=== PATIENT | male | born 1985 | race Caucasian/White ===

== ENCOUNTER 2016-05-30 17:54 | Emergency (ER) | payer MEDICARE, MEDICAID ==
[~2016-05-30] VITALS: Ht 177.8 cm; Wt 124.7 kg
[~2016-05-30 17:54] MED LIST: CEPH-38 PO; HYDR-757 PO; MELO15TA39; PRD20T PO; TRM50T PO
[2016-05-30] MEDS ORDERED: RT-ALBUINH (18:41)
[2016-05-30] MEDS ORDERED: MUPI22OI2 (18:41)
[2016-05-30] MEDS ORDERED: BUDE10.2 (18:41)
[2016-05-30] MEDS ORDERED: KETOROLAC 60 MG/2 ML VIAL IM STA (18:50)
[2016-05-30] MEDS ORDERED: HYDROcodone/APAP 10 MG/325 MG (LORTAB) TAB PO STA (18:50)
--- NOTE | 2016-05-30 19:20 | ED Back Pain ---
General Chief Complaint: Back Problems Stated Complaint: BACK PAIN Nursing Triage Note: AMBLATED TO ROOM 05 WITH COMPLAINTS OF BACK PAIN. PT HAS CHRONIC BACK PAIN BUT BECAME WORSE WHEN HE BENDED OVER TODAY. STATES HE DID NOT TAKE ANYTHING FOR PAIN BEFORE COMING TO THE ER. Nursing Sepsis Screen: No Definite Risk Source of Information: Patient Exam Limitations: No Limitations History of Present Illness Time Seen by Provider: 18:45 Initial Comments Here with report of low back pain that is radiating to the legs. Has history of back pain problems including degenerative disc disease. States he was bending over this morning and he felt it pole. He has had pain since. He has not taken anything for the pain. He does see Dr. Neri occasionally and will go back to him. Denies numbness or tingling between the legs. Denies bowel or bladder incontinence. Denies difficulty with walking or weakness. Timing/Duration: 12 Hours Severity: Moderate Pain/Injury Location: Back Radiation: Buttocks, Upper Legs Modifying Factors: Improves With Immobilization, Worse With Movement Associated Symptoms: muscle spasmsNo weakness, No numbness in legs/feet, tingling in legs/feetNo sensory/motor loss, lower back painNo loss of bladder control, No loss of bowel control Allergies and Home Medications Allergies Coded Allergies: No Known Drug Allergies (Unverified , 11/25/12) Home Medications Albuterol Sulfate 8.5 Gm Hfa.aer.ad #9 (Reported) Budesonide/Formoterol Fumarate 10.2 Gm Hfa.aer.ad #10 (Reported) Mupirocin 22 Gm Oint...g. #22 (Reported) Constitutional: see HPINo chills, No fever Respiratory: no symptoms reported Cardiovascular: no symptoms reported Musculoskeletal: see HPI back pain muscle stiffness Psychiatric/Neurological: No Symptoms Reported Past Pysfftk-Xjoyeb-Xwjimh Hx Patient Social History Alcohol Use: Denies Use Recreational Drug Use: No Smoking Status: Current Everyday Smoker Recent Foreign Travel: No Contact w/Someone Who Travel: No Recent Infectious Disease Expo: No Recent Hopitalizations: No Physical Abuse Screen: No Sexual Abuse: No Immunizations Up To Date Tetanus Booster (TDap): Less than 5yrs Surgeries HX Surgeries: No Respiratory Hx Respiratory Disorders: No Cardiovascular Hx Cardiac Disorders: Yes Cardiac Disorders: Hypertension Neurological Hx Neurological Disorders: No Reproductive System Hx Reproductive Disorders: No Genitourinary Hx Genitourinary Disorders: No Gastrointestinal Hx Gastrointestinal Disorders: No Musculoskeletal Hx Musculoskeletal Disorders: Yes Musculoskeletal Disorders: Degenerate Disk Disease, Chronic Back Pain Endocrine Hx Endocrine Disorders: No HEENT HX ENT Disorders: No Cancer Hx Cancer: No Psychosocial Hx Psychiatric Problems: No Reviewed Nursing Assessment Reviewed/Agree w Nursing PMH: Yes Family Medical History Significant Family History: No Pertinent Family Hx Physical Exam Vital Signs Vital Sign - Last 12Hours 05/30/16 18:36 Temp 98.1 Pulse 106 Resp 18 B/P 147/125 Pulse Ox 97 Capillary Refill : Less Than 3 Seconds General Appearance: No Apparent Distress WD/WN Cardiovascular: Regular Rate, Rhythm No Murmur Respiratory: Lungs Clear Normal Breath Sounds Back: No CVA Tenderness No Vertebral Tenderness Muscle Spasm Other (tender bilateral low back area with left greater than right and muscle spasms noted.) Extremity: Normal Inspection Normal Range of Motion Non Tender Neurologic/Psychiatric: Alert Oriented x3 No Motor/Sensory Deficits Skin: Normal Color Warm/Dry Progress/Results/Core Measures Results/Orders My Orders Orders-KAMILLE GAMBOA MD Hydrocodone/Apap 10/325 Tablet (Lortab 1 (05/30/16 18:50) Ketorolac Injection (Toradol Injection) (05/30/16 18:50) Vital Signs/I&O Vital Sign - Last 12Hours 05/30/16 18:36 Temp 98.1 Pulse 106 Resp 18 B/P 147/125 Pulse Ox 97 Blood Pressure Mean: 132 Progress Note : Progress Note Seen and evaluated. Hydrocodone 10/325 one tab by mouth given. Toradol 60 mg IM. Discharged home with return precautions. Patient verbalize understanding instructions and agreement with plan. Departure Impression Impression: Primary Impression: Back pain Qualified Code: M54.42 - Lumbago with sciatica, left side Disposition: 01 HOME, SELF-CARE Condition: Improved Departure-Patient Inst. Decision time for Depature: 19:23 Referrals: NO,LOCAL PHYSICIAN (PCP/Family) Primary Care Physician Patient Instructions: Low Back Pain (DC), Radiculopathy (DC) Add. Discharge Instructions: All discharge instructions reviewed with patient and/or family. Voiced understanding. Take medications as directed. You may take ibuprofen 800 mg every 8 hours as needed for pain. Follow-up with your doctor and one to 2 days for recheck and further evaluation. Return for worse pain, weakness, numbness between your legs , difficulty with walking or going to the bathroom or other concerns as needed. Scripts Prednisone 20 Mg Tab40 Mg PO DAILY #14 TAB Prov:KAMILLE GAMBOA MD 05/30/16 Hydrocodone/Acetaminophen (Hydrocodon-Acetaminoph 7.5-325)1 Each Tablet1 Each PO Q6H #14 TAB Prov:KAMILLE GAMBOA MD 05/30/16 KAMILLE GAMBOA MD May 30, 2016 19:20
[2016-05-30] MEDS ORDERED: HYDR-3816 PO (19:24)
[2016-05-30] MEDS ORDERED: PRD20T PO (19:24)
[2016-05-30 19:30] VITALS: BP 147/125
== END 2016-05-30 19:30 | disposition home or self-care (01) ==
LOC: EDUNIT# 17:54 → ER 17:56
DX: M54.41 Lumbago with sciatica, right side (principal); M54.42 Lumbago with sciatica, left side; I10 Essential (primary) hypertension; F17.210 Nicotine dependence, cigarettes, uncomplicated
CPT/HCPCS: 96372; 99283

== ENCOUNTER 2016-07-24 10:10 | Inpatient (IN) | payer MEDICAID, MEDICARE ==
[~2016-07-24] VITALS: Ht 182.9 cm; Wt 131.5 kg
[~2016-07-24 10:10] MED LIST changes: +BUDE10.2; +HYDR-3816 PO; +MUPI22OI2; +RT-ALBUINH
[2016-07-24 10:47] LABS: BASOPHILS % (AUTO) 0 % (0-10); EOSINOPHILS # (AUTO) 0.1 10^3/uL (0.0-0.3); EOSINOPHILS % (AUTO) 0 % (0-10); LYMPHOCYTES # (AUTO) 2.1 X 10^3 (1.0-4.0); LYMPHOCYTES % (AUTO) 13 % (12-44); MEAN CORPUSCULAR HEMOGLOBIN 30 PG (25-34); MEAN CORPUSCULAR HGB CONC 33 G/DL (32-36); MEAN CORPUSCULAR VOLUME 91 FL (80-99); MEAN PLATELET VOLUME 11.8 FL (7.4-10.4); MONOCYTES # (AUTO) 1.4 X 10^3 (0.0-1.0); MONOCYTES % (AUTO) 9 % (0-12); NEUTROPHILS # (AUTO) 12.2 X 10^3 (1.8-7.8); NEUTROPHILS % (AUTO) 78 % (42-75); PLATELET COUNT 206 10^3/uL (130-400); RED BLOOD COUNT 4.99 10^6/uL (4.35-5.85); RED CELL DISTRIBUTION WIDTH 14.4 % (10.0-14.5); WHITE BLOOD COUNT 15.7 10^3/uL (4.3-11.0)
[2016-07-24] MEDS ORDERED: NS IV 1000 ML 1,000 ML IV ONE (10:50)
[2016-07-24 10:53] LABS: BILIRUBIN,URINE NEGATIVE (NEGATIVE); KETONES,URINE NEGATIVE (NEGATIVE); LEUKOCYTE ESTERASE ,URINE 1+ (NEGATIVE); NITRITE,URINE POSITIVE (NEGATIVE); PH,URINE 6 (5-9); PROTEIN,URINE 2+ (NEGATIVE); UROBILINOGEN,URINE 4 MG/DL (NORMAL)
--- NOTE | 2016-07-24 11:02 | ED GI ---
General Chief Complaint: Abdominal/GI Problems Stated Complaint: ABD PAIN/FEVER WEAK DIZZY Nursing Triage Note: PT CO OF ABD PAIN AND FEVER STARTED SATURDAY NITE. FEVER UP TO 103, HAS SOME NVD Sepsis Screen: Possible Severe Sepsis Risk Source of Information: Patient Exam Limitations: No Limitations (KAMILLE GAMBOA MD) History of Present Illness Time Seen By Provider: 10:40 Initial Comments Here with complaint of 2 days of left lower quadrant abdominal pain and fever. Reports the fever was up to 103. Has had minor cough and upper respiratory symptoms. Reports that he's had watery diarrhea and multiple episodes of that. Has had some nausea but no vomiting. Denies blood in his stool. Never had anything like this before specifically. Timing/Duration: 2-3 Days Severity/Quality: Moderate, Cramping Location: Generalized Abdomen Radiation: LLQ Activities at Onset: None Modifying Factors: Improves With Defecating, Worsens With Eating, Worsens With Movement Associated Symptoms: No Back Pain, No Chest Pain, Fever/Chills Nausea/Vomiting (KAMILLE GAMBOA MD) Allergies and Home Medications Allergies Coded Allergies: No Known Drug Allergies (Unverified , 11/25/12) Home Medications Albuterol Sulfate 8.5 Gm Hfa.aer.ad #9 (Reported) Budesonide/Formoterol Fumarate 10.2 Gm Hfa.aer.ad #10 (Reported) Review of Systems Constitutional: see HPI chills fever EENTM: Nose CongestionNo Throat Pain Respiratory: CoughDenies Shortness of Air Cardiovascular: Denies Chest Pain, Denies Edema Gastrointestinal: Abdominal Pain Diarrhea NauseaDenies Rectal Bleeding, Denies Vomiting Genitourinary: No Symptoms Reported Musculoskeletal: no symptoms reported Skin: no symptoms reported (KAMILLE GAMBOA MD) All Other Systems Reviewed Negative Unless Noted: Yes (KAMILLE GAMBOA MD) Past Awhrnut-Ieymeu-Fxwvzm Hx Patient Social History Alcohol Use: Denies Use Recreational Drug Use: No Smoking Status: Current Everyday Smoker Type Used: Cigarettes Recent Foreign Travel: No Contact w/Someone Who Travel: No Recent Infectious Disease Expo: No Recent Hopitalizations: No (KAMILLE GAMBOA MD) Immunizations Up To Date Tetanus Booster (TDap): Less than 5yrs (KAMILLE GAMBOA MD) Surgeries HX Surgeries: No (KAMILLE GAMBOA MD) Respiratory Hx Respiratory Disorders: No (KAMILLE GAMBOA MD) Cardiovascular Hx Cardiac Disorders: Yes Cardiac Disorders: Hypertension (KAMILLE GAMBOA MD) Neurological Hx Neurological Disorders: No (KAMILLE GAMBOA MD) Reproductive System Hx Reproductive Disorders: No (KAMILLE GAMBOA MD) Genitourinary Hx Genitourinary Disorders: No (KAMILLE GAMBOA MD) Gastrointestinal Hx Gastrointestinal Disorders: No (KAMILLE GAMBOA MD) Musculoskeletal Hx Musculoskeletal Disorders: Yes Musculoskeletal Disorders: Degenerate Disk Disease, Chronic Back Pain (KAMILLE GAMBOA MD) Endocrine Hx Endocrine Disorders: No (KAMILLE GAMBOA MD) HEENT HX ENT Disorders: No (KAMILLE GAMBOA MD) Cancer Hx Cancer: No (KAMILLE GAMBOA MD) Psychosocial Hx Psychiatric Problems: No (KAMILLE GAMBOA MD) Reviewed Nursing Assessment Reviewed/Agree w Nursing PMH: Yes (KAMILLE GAMBOA MD) Family Medical History Significant Family History: No Pertinent Family Hx (KAMILLE GAMBOA MD) Physical Exam Vital Signs VS - Last 72 Hours, by Label 07/24/16 10:15 Temp 98.0 Pulse 111 Resp 18 B/P 141/85 Pulse Ox 97 (BULMARO AGUILAR MD) Vital Signs Capillary Refill : Less Than 3 Seconds (KAMILLE GAMBOA MD) General Appearance: WD/WN no apparent distress HEENT: No pharynx normal, other (nasal congestion bilateral) Neck: full range of motion supple Respiratory: lungs clear normal breath sounds Cardiovascular: no murmur tachycardia Gastrointestinal: soft tenderness (left lower quadrant and suprapubic tenderness) Extremities: non-tender normal inspection Back: normal inspection no CVA tenderness no vertebral tenderness Neurologic/Psychiatric: alert oriented x 3 Skin: normal color warm/dry (KAMILLE GAMBOA MD) Progress/Results/Core Measures Results/Orders Lab Results Laboratory Tests Test 07/24/16 10:30 07/24/16 11:30 Range/Units Activated Partial Thromboplast Time 24 24-35 SEC Alanine Aminotransferase (ALT/SGPT) 46 0-55 U/L Albumin 3.9 3.2-4.5 G/DL Alkaline Phosphatase 51 40-136 U/L Anion Gap 12 5-14 MMOL/L Aspartate Amino Transf (AST/SGOT) 12 5-34 U/L BUN/Creatinine Ratio 9 Band Neutrophils 1 % Basophils # (Auto) 0.0 0.0-0.1 10^3/uL Basophils % (Manual) 0 % Basophils (%) (Auto) 0 0-10 % Blood Morphology Comment NORMAL Blood Urea Nitrogen 8 7-18 MG/DL Calcium Level 9.2 8.5-10.1 MG/DL Carbon Dioxide Level 20 L 21-32 MMOL/L Chloride Level 107 98-107 MMOL/L Creatinine 0.87 0.60-1.30 MG/DL Eosinophils # (Auto) 0.1 0.0-0.3 10^3/uL Eosinophils % (Manual) 1 % Eosinophils (%) (Auto) 0 0-10 % Estimat Glomerular Filtration Rate > 60 Glucose Level 105 70-105 MG/DL Hematocrit 45 40-54 % Hemoglobin 15.0 13.3-17.7 G/DL INR Comment 1.0 0.8-1.4 Lymphocytes # (Auto) 2.1 1.0-4.0 X 10^3 Lymphocytes % (Manual) 13 % Lymphocytes (%) (Auto) 13 12-44 % Mean Corpuscular Hemoglobin 30 25-34 PG Mean Corpuscular Hemoglobin Concent 33 32-36 G/DL Mean Corpuscular Volume 91 80-99 FL Mean Platelet Volume 11.8 H 7.4-10.4 FL Monocytes # (Auto) 1.4 H 0.0-1.0 X 10^3 Monocytes % (Manual) 6 % Monocytes (%) (Auto) 9 0-12 % Neutrophils # (Auto) 12.2 H 1.8-7.8 X 10^3 Neutrophils % (Manual) 69 % Neutrophils (%) (Auto) 78 H 42-75 % Platelet Count 206 130-400 10^3/uL Potassium Level 3.5 L 3.6-5.0 MMOL/L Prothrombin Time 13.0 12.2-14.7 SEC Reactive Lymphocytes 10 % Red Blood Count 4.99 4.35-5.85 10^6/uL Red Cell Distribution Width 14.4 10.0-14.5 % Sodium Level 139 135-145 MMOL/L Total Bilirubin 1.1 H 0.1-1.0 MG/DL Total Protein 7.2 6.4-8.2 G/DL Urine Bacteria NEGATIVE /HPF Urine Bilirubin NEGATIVE NEGATIVE Urine Casts NONE /LPF Urine Clarity CLEAR Urine Color YELLOW Urine Crystals NONE /LPF Urine Culture Indicated YES Urine Glucose (UA) NEGATIVE NEGATIVE Urine Ketones NEGATIVE NEGATIVE Urine Leukocyte Esterase 1+ H NEGATIVE Urine Mucus LARGE H /LPF Urine Nitrite POSITIVE H NEGATIVE Urine Protein 2+ H NEGATIVE Urine RBC 0-2 /HPF Urine RBC (Auto) 1+ H NEGATIVE Urine Specific [place] 1.015 L 1.016-1.022 Urine Squamous Epithelial Cells NONE /HPF Urine Urobilinogen 4 H NORMAL MG/DL Urine WBC 2-5 /HPF Urine pH 6 5-9 White Blood Count 15.7 H 4.3-11.0 10^3/uL Lactic Acid Level 0.70 0.50-2.00 MMOL/L (BULMARO AGUILAR MD) Micro Results Microbiology 07/24/16 Influenza Types A,B Antigen (SAADIA) - Final, Complete (BULMARO AGUILAR MD) Medications Given in ED Current Medications Medications Dose Ordered Sig/Feliciano Route Start Time Stop Time Status Last Admin Dose Admin Iohexol 150 ml ONCE ONCE IV 07/24/16 11:30 07/24/16 11:31 DC 07/24/16 12:07 125 ML Sodium Chloride 100 ml ONCE ONCE IV 07/24/16 11:30 07/24/16 11:31 DC 07/24/16 12:07 80 ML Sodium Chloride 1,000 ml @ 0 mls/hr Q0M ONCE IV 07/24/16 10:50 07/24/16 10:51 DC 07/24/16 11:01 1,000 MLS/HR (BULMARO AGUILAR MD) Vital Signs/I&O Vital Sign - Last 12Hours 07/24/16 10:15 Temp 98.0 Pulse 111 Resp 18 B/P 141/85 Pulse Ox 97 (BULMARO AGUILAR MD) Blood Pressure Mean: 103 Progress Note : Progress Note Seen and evaluated. IV, labs, chest x-ray, blood cultures and lactic acid, influenza screen and normal saline 1 L bolus ordered. Monitor patient. UTI noted. Patient does have significant pain in the left lower quadrant as well. CT abdomen and pelvis with contrast ordered. 1200: Care transferred to Dr. AGUILAR pending CT. (KAMILLE GAMBOA MD) Diagnostic Imaging Diagonstic Imaging: Xray Plain Films/CT/US/NM/MRI: chest Comments [facility]IA [facility], [facility]. [place], [place] NAME: ANDRES AYALA [facility] REC#: [id number] PT STATUS: REG ER : 1985 PHYSICIAN: KAMILLE GAMBOA MD ADMIT DATE: 07/24/16/ER Draft Date of Exam:07/24/16 CHEST 1 VIEW, AP/PA ONLY INDICATION: Shortness of breath, nausea, vomiting, and diarrhea since last night. COMPARISON STUDY: Chest from 09-14-09. FINDINGS: Frontal view of the chest demonstrates the lungs to be clear. The heart, mediastinum, pulmonary vascularity and visualized bony thorax are normal. IMPRESSION: Negative chest. Dictated on workstation # [id number] Dict: 07/24/16 1113 Trans: 07/24/16 1120 JEROME [id number] Interpreted by: JOSE ARRINGTON MD Electronically signed by: Reviewed: Reviewed by Me (KAMILLE GAMBOA MD) Departure Communication Progress Notes I took over the patient from Dr. Gamboa at 12 noon. At 1215. The radiologist called and reported that the patient had 2 diverticuli both in the left lower quadrant and one of them was perforated. He will be admitted for definitive treatment. (BULMARO AGUILAR MD) Impression Impression: Primary Impression: Perforation of sigmoid colon due to diverticulitis Disposition: ADMITTED INPATIENT Condition: Stable/Unchanged Decision to Admit Reason: Admit from ER (General) Decision to Admit/Date: Jul 24, 2016 Time/Decision to Admit Time: 12:57 (BULMARO AGUILAR MD) Departure-Patient Inst. Referrals: [facility] (PCP/Family) Primary Care Physician KAMILLE GAMBOA MD Jul 24, 2016 11:02 BULMARO AGUILAR MD Jul 24, 2016 12:58
[2016-07-24 11:04] LABS: ALANINE AMINOTRANSFERASE 46 U/L (0-55); ALBUMIN 3.9 G/DL (3.2-4.5); ANION GAP 12 MMOL/L (5-14); ASPARTATE AMINO TRANSFERASE 12 U/L (5-34); BILIRUBIN,TOTAL 1.1 MG/DL (0.1-1.0); BLOOD UREA NITROGEN 8 MG/DL (7-18); BUN/CREATININE RATIO 9; CALCIUM 9.2 MG/DL (8.5-10.1); CARBON DIOXIDE 20 MMOL/L (21-32); CHLORIDE 107 MMOL/L (98-107); CREATININE SERUM 0.87 MG/DL (0.60-1.30); GFR ESTIMATED > 60; GLUCOSE 105 MG/DL (70-105); POTASSIUM 3.5 MMOL/L (3.6-5.0); SODIUM 139 MMOL/L (135-145); TOTAL PROTEIN 7.2 G/DL (6.4-8.2)
[2016-07-24 11:11] LABS: BAND NEUTROPHILS 1 %; BASOPHILS % (MANUAL) 0 %; EOSINOPHILS % (MANUAL) 1 %; LYMPHOCYTES % (MANUAL) 13 %; NEUTROPHILS % (MANUAL) 69 %; REACTIVE LYMPHOCYTES 10 %
--- NOTE | 2016-07-24 11:20 | Diagnostic Imaging Report ---
INDICATION: Shortness of breath, nausea, vomiting, and diarrhea since last night. COMPARISON STUDY: Chest from 09-14-09. FINDINGS: Frontal view of the chest demonstrates the lungs to be clear. The heart, mediastinum, pulmonary vascularity and visualized bony thorax are normal. IMPRESSION: Negative chest. Dictated by: Dictated on workstation # [id number]
[2016-07-24] MEDS ORDERED: NS 100 ML (IVPB) BAG IV ONE (11:30)
[2016-07-24] MEDS ORDERED: IOHEXOL 350 MG/ML 150 ML (OMNIPAQUE 350) VIAL IV ONE (11:30)
--- NOTE | 2016-07-24 12:55 | Diagnostic Imaging Report ---
PROCEDURE: CT abdomen and pelvis with contrast. TECHNIQUE: Multiple contiguous axial images were obtained through the abdomen and pelvis after administration of intravenous contrast. INDICATION: Fever, diarrhea, left lower quadrant pain. FINDINGS: There is acute diverticulitis in the left lower quadrant of the proximal sigmoid colon with multiple adjacent bubbles of extraluminal mesenteric gas, consistent with perforation. The extraluminal air confined of the adjacent mesentery with no free anti-dependent air deep to the abdominal wall. There is no abscess or drainable fluid collection. There is no evidence for resultant bowel obstruction. Only a few regional diverticula at the level of acute inflammation found. The remaining large bowel is unremarkable, nonacute, and nonfocal. The appendix is normal. Prostate, seminal vesicles, and urinary bladder appeared normal. The kidneys are unobstructed and normal. The liver, gallbladder, bile ducts, pancreas, lung bases, and osseous structures are normal. There is a circumscribed well-defined left adrenal mass measuring 3.6 x 3.2 cm at the dynamic and delayed images. It is relatively low in density with Hounsfield units averaging about 8 to 15. Pre injection imaging is not performed. Assuming the absence of known malignancy, the lesion's density and morphology most strongly favors a benign adenoma. Followup study in six months' time to include pre contrast dynamic and delayed acquisitions recommended to confirm the suspicion for benignity. As an alternative, MRI may be of use on nonemergent outpatient basis. IMPRESSION: 1. Findings of acute sigmoid diverticulitis with multiple bubbles of adjacent extraluminal mesenteric air, compatible with likely microperforation. No abscess or drainable fluid collection and no resultant bowel obstruction. No other acute findings. 2. 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 Adenoma is favored, however, followup in six months' time to include pre injection series versus nonemergent outpatient adrenal protocol MRI is suggested. Results have been discussed with the emergency room physician. Dictated by: Dictated on workstation # [id number]
[2016-07-24] MEDS ORDERED: fentaNYL INJECTION 100 MCG/2 ML AMP ONE (14:05)
[2016-07-24] MEDS ORDERED: fentaNYL INJECTION 100 MCG/2 ML AMP IVP ONE (14:15)
[2016-07-24] MEDS ORDERED: BUDE10.22 IH (15:34)
[2016-07-24] MEDS ORDERED: RT-ALBUINH IH (15:34)
[2016-07-24] MEDS ORDERED: ACET-93 PO (15:38)
[2016-07-24] MEDS ORDERED: IBUP-1780 PO (15:38)
[2016-07-24] MEDS ORDERED: fentaNYL INJECTION 100 MCG/2 ML AMP IV PRN (15:45)
[2016-07-24] MEDS ORDERED: CATHETER FLUSH 10 ML SYR IV PRN (15:45)
[2016-07-24] MEDS ORDERED: FLU TRIvalent (5 YOA+) 2016-17 (AFLURIA) 0.5 ML IM ONE (15:45)
[2016-07-24] MEDS: metroNIDAZOLE 500MG/100ML IVPB 100 ML IV SCH ×2 (15:56→21:00)
[2016-07-24] MEDS: NS IV 1000 ML 1,000 ML IV SCH ×2 (15:56→23:45)
[2016-07-24 16:00] VITALS: BP 148/85
[2016-07-24] MEDS: CIPROFLOXACIN IV 400MG/200ML 200 ML IV SCH (18:26)
--- NOTE | 2016-07-24 19:39 | Consultation ---
History of Present Illness History of Present Illness Patient Consulted On(rivka/time) 07/24/16 19:33 Date of Admission 07/24/16 History of Present Illness Surgery asked to consult regarding Perforated Diverticulitis. HPI: Pt with complaint of 2 days of left lower quadrant abdominal pain and fever. Reports the fever was up to 103. Has had minor cough and upper respiratory symptoms. Reports that he's had watery diarrhea and multiple episodes of that. Has had some nausea but no vomiting. Denies blood in his stool. Never had anything like this before specifically. Pain is worse with initiating a BM or urination, worse when he sits up. He states actually gets better when he walks. Pain meds are also helping. He states his pain when its at its worst is 10 out of 10. Allergies and Home Medications Allergies Coded Allergies: No Known Drug Allergies (Unverified , 11/25/12) Home Medications Acetaminophen 500 Mg Tablet 1,000 MG PO Q8H PRN PRN FEVER (Reported) TAKES 2 (500 MG) TABLETS Albuterol Sulfate 1 Puff Puff 2 PUFF IH Q4H PRN PRN SHORTNESS OF BREATH ( Reported) Budesonide/Formoterol Fumarate 10.2 Gm Hfa.aer.ad 2 PUFF IH BID (Reported) Ibuprofen 800 Mg Tablet 800 MG PO TID PRN PRN HEADACHE (Reported) Past Giotjtx-Hkldde-Rkyiom Hx Patient Social History Alcohol Use: Occasionally Uses (1-2 times a month, socially) Recreational Drug Use: No Smoking Status: Current Everyday Smoker Type Used: Cigarettes Recent Foreign Travel: No Contact w/Someone Who Travel: No Recent Infectious Disease Expo: No Recent Hopitalizations: No Physical Abuse Screen: No Sexual Abuse: No Immunizations Up To Date Tetanus Booster (TDap): Less than 5yrs Seasonal Allergies Seasonal Allergies: No Surgeries HX Surgeries: No Respiratory Hx Respiratory Disorders: No Cardiovascular Hx Cardiac Disorders: Yes Cardiac Disorders: Hypertension Neurological Hx Neurological Disorders: No Reproductive System Hx Reproductive Disorders: No Genitourinary Hx Genitourinary Disorders: No Gastrointestinal Hx Gastrointestinal Disorders: No Musculoskeletal Hx Musculoskeletal Disorders: Yes Musculoskeletal Disorders: Degenerate Disk Disease, Chronic Back Pain Endocrine Hx Endocrine Disorders: No HEENT HX ENT Disorders: No Cancer Hx Cancer: No Psychosocial Hx Psychiatric Problems: No Integumentary HX Skin/Integumentary Disorder: No Reviewed Nursing Assessment Reviewed/Agree w Nursing PMH: Yes Family Medical History Significant Family History: No Pertinent Family Hx, CAD Under 55 Years Old ( father), Diabetes (father) Review of Systems-General Constitutional: chills diaphoresis fever malaise EENTM: No double vision, No ear pain, No epistaxis, No mouth swelling, No nose congestion, No throat swelling Respiratory: coughNo dyspnea on exertion, No hemoptysis, No phlegm Cardiovascular: No chest pain, No edema, No palpitations Gastrointestinal: LLQ diarrhea loss of appetiteNo melena Genitourinary: No decreased output, No discharge, No dysuria, No frequency, No hematuria Musculoskeletal: back pain joint pain joint swelling muscle stiffness Skin: No dryness, No lesions Psychiatric/Neurological: Denies Anxiety, Denies Depressed, HeadacheDenies Seizure, Denies Tingling, Denies Weakness Other pt denies any chronic illnesses, no swollen lymph nodes. No heat or cold intolerance, no polyuria, polydipsia Physical Exam-General Problems Physical Exam Vital Signs Vital Sign - Last 12Hours 07/24/16 07/24/16 10:15 16:00 Temp 98.0 Pulse 111 Resp 18 B/P 141/85 Pulse Ox 97 O2 Delivery Room Air Capillary Refill : Less Than 3 Seconds General Appearance: WD/WN moderate distress (secondary to pain) obese Eyes: Bilateral Eye EOMI, Bilateral Eye PERRL HEENT: pharynx normalNo scleral icterus (R), No scleral icterus (L), No pale conjunctivae (R), No pale conjunctivae (L) Neck: non-tender full range of motion supple normal inspection Respiratory: lungs clear normal breath sounds no respiratory distress no accessory muscle use Cardiovascular: regular rate, rhythm no edema no murmur Gastrointestinal: normal bowel sounds soft no organomegalyNo distended, guarding (voluntary LLQ) tenderness (LLQ - localized pain) Rectal: deferred Back: no CVA tenderness no vertebral tenderness Extremities: no pedal edema no calf tenderness normal capillary refill 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2, Carbon Dioxide Level 20L, Chloride Level 107, Creatinine 0.87, Eosinophils # (Auto) 0.1, Eosinophils % (Manual) 1, Eosinophils (%) (Auto) 0, Estimat Glomerular Filtration Rate > 60, Glucose Level 105, Hematocrit 45, Hemoglobin 15.0, INR Comment 1.0, Lymphocytes # (Auto ) 2.1, Lymphocytes % (Manual) 13, Lymphocytes (%) (Auto) 13, Mean Corpuscular Hemoglobin 30, Mean Corpuscular Hemoglobin Concent 33, Mean Corpuscular Volume 91, Mean Platelet Volume 11.8H, Monocytes # (Auto) 1.4H, Monocytes % (Manual) 6 , Monocytes (%) (Auto) 9, Neutrophils # (Auto) 12.2H, Neutrophils % (Manual) 69 , Neutrophils (%) (Auto) 78H, Platelet Count 206, Potassium Level 3.5L, Prothrombin Time 13.0, Reactive Lymphocytes 10, Red Blood Count 4.99, Red Cell Distribution Width 14.4, Sodium Level 139, Total Bilirubin 1.1H, Total Protein 7.2, Urine Bacteria NEGATIVE, Urine Bilirubin NEGATIVE, Urine Casts NONE, Urine Clarity CLEAR, Urine Color YELLOW, Urine Crystals NONE, Urine Culture Indicated YES, Urine Glucose (UA) NEGATIVE, Urine Ketones NEGATIVE, Urine Leukocyte Esterase 1+H, Urine Mucus LARGEH, Urine Nitrite POSITIVEH, Urine Protein 2+H, Urine RBC 0-2, Urine RBC (Auto) 1+H, Urine Specific Holden 1.015L, Urine Squamous Epithelial Cells NONE, Urine Urobilinogen 4H, Urine WBC 2-5, Urine pH 6 , White Blood Count 15.7H 07/24/16 11:30: Lactic Acid Level 0.70 Microbiology 07/24/16 Influenza Types A,B Antigen (SAADIA) - Final, Complete Assessment/Plan Assessment/Plan Assessment/Plan Perforated Diverticulitis NPO, IV fluids, IV ABX, lefty labs. Had long discussion with pt and his ; over 45 minutes. We discussed course of the disease, most likely hospital course. We also talked about timing of surgical intervention; none needed at this time and may not need in the future, unless it starts affecting his daily life. We talked about diet (low residual and increased fiber), anatomy and what the CT reading was. Discussed surgery in detail; 2-stage vs. 1-stage procedure. All questions answered to their satisfaction. 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 Clinical Quality Measures DVT/VTE Risk/Contraindication: Risk Factor Score Per Nursin RFS Level Per Nursing on Admit: 3=High CARMINE ACUÑA DO Jul 24, 2016 19:39
[2016-07-24 20:00] VITALS: BP 145/83
[2016-07-24] MEDS: HYDROmorphone (DILAUDID) 2 MG/ML VIAL IVP PRN (22:40)
[2016-07-25 00:01] VITALS: BP 117/65
[2016-07-25] MEDS: NS IV 1000 ML 1,000 ML IV SCH ×2 (03:19→13:13)
[2016-07-25] MEDS: HYDROmorphone (DILAUDID) 2 MG/ML VIAL IVP PRN ×4 (04:03→22:44)
[2016-07-25 04:06] VITALS: BP 142/82
[2016-07-25] MEDS: metroNIDAZOLE 500MG/100ML IVPB 100 ML IV SCH ×3 (05:09→22:09)
[2016-07-25 05:16] LABS: BASOPHILS % (AUTO) 0 % (0-10); EOSINOPHILS # (AUTO) 0.1 10^3/uL (0.0-0.3); EOSINOPHILS % (AUTO) 1 % (0-10); LYMPHOCYTES # (AUTO) 1.9 X 10^3 (1.0-4.0); LYMPHOCYTES % (AUTO) 18 % (12-44); MEAN CORPUSCULAR HEMOGLOBIN 30 PG (25-34); MEAN CORPUSCULAR HGB CONC 33 G/DL (32-36); MEAN CORPUSCULAR VOLUME 92 FL (80-99); MEAN PLATELET VOLUME 11.4 FL (7.4-10.4); MONOCYTES # (AUTO) 0.9 X 10^3 (0.0-1.0); MONOCYTES % (AUTO) 9 % (0-12); NEUTROPHILS # (AUTO) 7.8 X 10^3 (1.8-7.8); NEUTROPHILS % (AUTO) 73 % (42-75); PLATELET COUNT 179 10^3/uL (130-400); RED CELL DISTRIBUTION WIDTH 14.4 % (10.0-14.5); WHITE BLOOD COUNT 10.8 10^3/uL (4.3-11.0)
[2016-07-25] MEDS: CIPROFLOXACIN IV 400MG/200ML 200 ML IV SCH ×2 (06:15→17:57)
[2016-07-25 08:08] VITALS: BP 120/73
--- NOTE | 2016-07-25 10:46 | Progress Note ---
Subjective Subjective/Events-last exam Pt seen and examined; states his pain is about a 7. He feels better than yesterday and nurse said he walked downstairs and was there for an hour or so. He is passing gas and still has watery, brownish bowel movements. Review of Systems General: No Chills, No Night Sweats, Fatigue Appetite (pt states he is not that hungry, but very thirsty) HEENT: Head Aches (pt thinks it is from not eating)No Sore Throat Pulmonary: No Dyspnea, No Cough Cardiovascular: No: Chest Pain Gastrointestinal: No: Nausea, Vomiting Neurological: No: Numbness, Weakness Objective Exam Vital Signs Date Time Temp Pulse Resp B/P Pulse Ox O2 Delivery O2 Flow Rate FiO2 07/25/16 08:08 97.1 101 16 120/73 95 Room Air 07/25/16 04:06 98.3 85 22 142/82 95 Room Air 07/25/16 00:01 99.3 95 20 117/65 93 Room Air 07/24/16 20:55 Room Air 07/24/16 20:00 99.8 102 20 145/83 93 Room Air 07/24/16 16:00 99.7 93 20 148/85 96 Room Air 07/24/16 14:42 98.0 88 18 97 I & O 07/25/16 07:00 Intake Total 2700 ml Balance 2700 ml Capillary Refill : Less Than 3 Seconds General Appearance: No Apparent Distress WD/WN Obese HEENT: PERRL/EOMI Pharynx NormalNo Scleral Icterus (L), No Scleral Icterus (R) Neck: Full Range of Motion Non Tender SuppleNo Thyromegaly Respiratory: Lungs Clear Normal Breath Sounds No Accessory Muscle Use No Respiratory Distress Cardiovascular: Regular Rate, Rhythm No Murmur Normal Peripheral Pulses Gastrointestinal: normal bowel sounds soft no organomegalyNo distended, guarding (voluntary LLQ) tenderness (LLQ - localized pain) Extremity: Normal Capillary Refill No Calf Tenderness No Pedal Edema Neurologic/Psychiatric: Alert 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 Norm as Tested Skin: Normal Color Warm/Dry Lymphatic: No Adenopathy (neck, axilla or groin) Results Lab Laboratory Tests 07/24/16 11:30: Lactic Acid Level 0.70 07/25/16 04:57: Basophils # (Auto) 0.0, Basophils (%) (Auto) 0, Eosinophils # (Auto) 0.1, Eosinophils (%) (Auto) 1, Hematocrit 42, Hemoglobin 13.5, Lymphocytes # (Auto) 1.9, Lymphocytes (%) (Auto) 18, Mean Corpuscular Hemoglobin 30, Mean Corpuscular Hemoglobin Concent 33, Mean Corpuscular Volume 92, Mean Platelet Volume 11.4H, Monocytes # (Auto) 0.9, Monocytes (%) (Auto) 9, Neutrophils # ( Auto) 7.8, Neutrophils (%) (Auto) 73, Platelet Count 179, Red Blood Count 4.50, Red Cell Distribution Width 14.4, White Blood Count 10.8 Microbiology 07/24/16 Influenza Types A,B Antigen (SAADIA) - Final, Complete 07/24/16 Urine Culture - Preliminary, Resulted Assessment/Plan Assessment/Plan Assessment/Plan Perforated Diverticulitis Will start ice chips now, Clear liquids for dinner and increase slowly. Will decrease IV fluids. IV ABX will switch to oral after 3/9 am dose, lefty labs. Will go home on oral ABX for a total of 7 days of treatment Plan to send home Saturday afternoon or Saturday morning, pt must be tolerating diet with pain controlled. His pain is not yet under good enough control. 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 Clinical Quality Measures DVT/VTE Risk/Contraindication: Risk Factor Score Per Nursin RFS Level Per Nursing on Admit: 3=High CARMINE ACUÑA DO Jul 25, 2016 10:46
--- NOTE | 2016-07-25 11:39 | History & Physical-Hospitalist ---
HPI History of Present Illness: HPI/Chief Complaint CC: Abdominal pain HPI: This is a pt of [facility] that presents with abdominal pain and fever of 103 found to have acute diverticulitis with micro-perforation. Pt placed on Cipro and Flagyl, pain medication, IV fluids, and surgical consultation. Chart Review: WBC down from 15 to 10.8 Pt on Cipro and Flagyl Dr. Guerrero Review: Pt will likely not need surgery, and may DC Saturday or Saturday. Pt can switch to clear liquid diet. Dr. Guerrero suggests total 7 days of antibiotic. digital measurement advisor: RN states that Dilaudid was effective. RN has no concerns at this time. Patient Interview: Pt denies having previous symptoms. Pt is disabled due to back, and does not work. Pt states that his pain is manageable, but states that it is at an 8. Pt denies vomiting at [facility]. Pt able to ambulate by himself. Physical exam stable. Pt smokes but denies drinking excessive ETOH. Pt lives with . Scribed by Brandin Gutierrez under the direct supervision of Dr. Jack. Source: patient Exam Limitations: no limitations Date Seen 07/25/16 Attending Physician Molly Jack DO [place] [facility] [place] Referring Physician Date of Admission Jul 24, 2016 at 13:54 Home Medications & Allergies Home Medications Reviewed patient Home Medication Reconciliation Form Allergies Coded Allergies: No Known Drug Allergies (Unverified , 11/25/12) Past Gikbmyc-Xyqzzp-Ggzcce Hx Patient Social History Marrital Status: Employed/Student: unemployed Alcohol Use: Occasionally Uses (1-2 times a month, socially) Recreational Drug Use: No Smoking Status: Current Everyday Smoker Type Used: Cigarettes Physical Abuse Screen: No Sexual Abuse: No Recent Foreign Travel: No Contact w/other who traveled: No Recent Hopitalizations: No Recent Infectious Disease Expo: No Immunizations Up To Date Tetanus Booster (TDap): Less than 5yrs Seasonal Allergies Seasonal Allergies: No Surgeries HX Surgeries: No Respiratory Hx Respiratory Disorders: Yes Respiratory Disorders: Asthma Cardiovascular Hx Cardiovascular Disorders: Yes Cardiac Disorders: Hypertension Neurological Hx Neurological Disorders: No Reproductive System Hx Reproductive Disorders: No Genitourinary Hx Genitourinary Disorders: No Gastrointestinal Hx Gastrointestinal Disorders: No Musculoskeletal Hx Musculoskeletal Disorders: Yes Musculoskeletal Disorders: Degenerate Disk Disease, Chronic Back Pain Endocrine Hx Endocrine Disorders: No HEENT HX ENT Disorders: No Cancer Hx Cancer: No Psychosocial Hx Psychiatric Problems: No Integumentary HX Skin/Integumentary Disorder: No Reviewed Nursing Assessment Reviewed/Agree w Nursing PMH: Yes Family Medical History Significant Family History: No Pertinent Family Hx, CAD Under 55 Years Old ( father), Diabetes (father) Review of Systems Constitutional: see HPI dizziness fever malaise weakness EENTM: no symptoms reported Respiratory: no symptoms reported Cardiovascular: no symptoms reported Gastrointestinal: abdominal pain (LLQ) Genitourinary: no symptoms reported Musculoskeletal: back pain Skin: no symptoms reported Psychiatric/Neurological: No Symptoms Reported All Other Systems Reviewed Negative Unless Noted: Yes Physical Exam Physical Exam Vital Signs Vital Sign - Last 12Hours 07/24/16 07/24/16 10:15 16:00 Temp 98.0 Pulse 111 Resp 18 B/P 141/85 Pulse Ox 97 O2 Delivery Room Air Capillary Refill : Less Than 3 Seconds General Appearance: No Apparent Distress WD/WN Chronically ill Eyes: Bilateral Eye Normal Inspection, Bilateral Eye PERRL HEENT: PERRL/EOMI Normal ENT Inspection Pharynx Normal Neck: Full Range of Motion Normal Inspection Non Tender Supple Carotid Bruit Respiratory: Chest Non Tender Lungs Clear Normal Breath Sounds No Accessory Muscle Use No Respiratory Distress Cardiovascular: Regular Rate, Rhythm No Edema No Gallop No JVD No Murmur Normal Peripheral Pulses Gastrointestinal: Normal Bowel Sounds No Organomegaly No Pulsatile Mass Soft Tenderness (LLQ) Back: Normal Inspection No CVA Tenderness No Vertebral Tenderness Extremity: Normal Capillary Refill Normal Inspection Normal Range of Motion Non Tender No Calf Tenderness No Pedal Edema Neurologic/Psychiatric: Alert Oriented x3 No Motor/Sensory Deficits Normal Mood/Affect Skin: Normal Color Warm/Dry Lymphatic: No Adenopathy Results Results/Procedures Lab Laboratory Tests 07/24/16 10:30 07/25/16 04:57 Assessment/Plan Admission Diagnosis Assessment: Acute diverticulitis with perforation Asthma Smoker Disability from chronic back pain Assessment and Plan Plan: Cipro and Flagyl IV fluids Pain management Dietary transition to clear liquids. DVT prophylaxis Ambulate Clinical Quality Measures DVT/VTE Risk/Contraindication: Risk Factor Score Per Nursin RFS Level Per Nursing on Admit: 3=High MOLLY JACK DO Jul 25, 2016 11:39
[2016-07-25] MEDS ORDERED: RT-ALBUTEROL SULF 2.5 MG/3 ML PRE-MIX VIAL INH PRN (12:00)
[2016-07-25] MEDS ORDERED: RT-ALBUTEROL HFA (VENTOLIN) PER PUFF IH PRN (12:00)
[2016-07-25] MEDS ORDERED: ENOXAPARIN 40 MG/0.4 ML (LOVENOX) SYR SC SCH (12:00)
[2016-07-25] MEDS ORDERED: ACETAMINOPHEN 500 MG TAB (TYLENOL) PO PRN (12:00)
[2016-07-25] MEDS ORDERED: IBUPROFEN 800 MG (MOTRIN) TAB PO PRN (12:00)
[2016-07-25] MEDS: RT-ALBUTEROL SULF 2.5 MG/3 ML PRE-MIX VIAL INH SCH ×2 (12:17→19:37)
[2016-07-25 12:38] VITALS: BP 140/74
[2016-07-25 16:00] VITALS: BP 145/68
[2016-07-25] MEDS: RT-ADVAIR HFA 45/21 MCG PER PUFF IH SCH (19:37)
[2016-07-25 20:45] VITALS: BP 135/62
[2016-07-25] MEDS ORDERED: NON-FORMULARY MEDICATION 1 EA EA (Budesonide/Formoterol Fumarate (Symbicort 80-4.5 Mcg Inh IH SCH (21:00)
[2016-07-26] VITALS: BP 140/63
[2016-07-26] MEDS: NS IV 1000 ML 1,000 ML IV SCH ×2 (00:40→07:45)
[2016-07-26 04:00] VITALS: BP 140/73
[2016-07-26] MEDS: metroNIDAZOLE 500MG/100ML IVPB 100 ML IV SCH (05:53)
[2016-07-26] MEDS: RT-ALBUTEROL SULF 2.5 MG/3 ML PRE-MIX VIAL INH SCH (06:33)
[2016-07-26] MEDS: RT-ADVAIR HFA 45/21 MCG PER PUFF IH SCH (06:34)
[2016-07-26] MEDS: CIPROFLOXACIN IV 400MG/200ML 200 ML IV SCH (07:00)
[2016-07-26 07:05] LABS: BASOPHILS % (AUTO) 0 % (0-10); EOSINOPHILS # (AUTO) 0.1 10^3/uL (0.0-0.3); EOSINOPHILS % (AUTO) 1 % (0-10); LYMPHOCYTES # (AUTO) 1.6 X 10^3 (1.0-4.0); LYMPHOCYTES % (AUTO) 21 % (12-44); MEAN CORPUSCULAR HEMOGLOBIN 30 PG (25-34); MEAN CORPUSCULAR HGB CONC 32 G/DL (32-36); MEAN CORPUSCULAR VOLUME 93 FL (80-99); MONOCYTES # (AUTO) 0.5 X 10^3 (0.0-1.0); MONOCYTES % (AUTO) 6 % (0-12); NEUTROPHILS # (AUTO) 5.4 X 10^3 (1.8-7.8); NEUTROPHILS % (AUTO) 71 % (42-75); PLATELET COUNT 193 10^3/uL (130-400); RED BLOOD COUNT 4.39 10^6/uL (4.35-5.85); RED CELL DISTRIBUTION WIDTH 14.2 % (10.0-14.5); WHITE BLOOD COUNT 7.6 10^3/uL (4.3-11.0)
[2016-07-26 07:30] LABS: ALANINE AMINOTRANSFERASE 42 U/L (0-55); ALBUMIN 3.4 G/DL (3.2-4.5); ANION GAP 11 MMOL/L (5-14); ASPARTATE AMINO TRANSFERASE 26 U/L (5-34); BILIRUBIN,TOTAL 0.5 MG/DL (0.1-1.0); BLOOD UREA NITROGEN 6 MG/DL (7-18); BUN/CREATININE RATIO 7; CALCIUM 8.9 MG/DL (8.5-10.1); CARBON DIOXIDE 21 MMOL/L (21-32); CHLORIDE 110 MMOL/L (98-107); CREATININE SERUM 0.81 MG/DL (0.60-1.30); GFR ESTIMATED > 60; GLUCOSE 83 MG/DL (70-105); POTASSIUM 3.5 MMOL/L (3.6-5.0); SODIUM 142 MMOL/L (135-145); TOTAL PROTEIN 6.5 G/DL (6.4-8.2)
[2016-07-26 08:34] VITALS: BP 138/62
[2016-07-26] MEDS ORDERED: KCL 20 MEQ TAB (K-DUR) PO NR (09:00)
--- NOTE | 2016-07-26 10:52 | Discharge Summary-Hospitalist ---
Diagnosis/Chief Complaint Date of Admission Jul 24, 2016 at 13:54 Date of Discharge Discharge Date: Admission Diagnosis Assessment: Acute diverticulitis with perforation Asthma Smoker Disability from chronic back pain Discharge Diagnosis Assessment: Acute diverticulitis with perforation Asthma Smoker Disability from chronic back pain Plan: Cipro and Flagyl IV fluids Pain management Dietary transition to clear liquids. DVT prophylaxis Ambulate Reason Hospital Visit/Course CC: Abdominal pain HPI: This is a pt of [facility] that presents with abdominal pain and fever of 103 found to have acute diverticulitis with micro-perforation. Pt placed on Cipro and Flagyl, pain medication, IV fluids, and surgical consultation. Chart Review: WBC down from 15 to 10.8 Pt on Cipro and Flagyl Dr. Guerrero Review: Pt will likely not need surgery, and may DC Saturday or Saturday. Pt can switch to clear liquid diet. Dr. Guerrero suggests total 7 days of antibiotic. 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 RN has no concerns at this time. Patient Interview: Pt denies having previous symptoms. Pt is disabled due to back, and does not work. Pt states that his pain is manageable, but states that it is at an 8. Pt denies vomiting at [facility]. Pt able to ambulate by himself. Physical exam stable. Pt smokes but denies drinking excessive ETOH. Pt lives with . Scribed by Brandin Gutierrez under the direct supervision of Dr. Jack. Notes from 07/26/2016: Chart Review: Max fever 100.7 WBC normal at 7.6 K+ 3.5 Patient Interview: Pt states that he has been ambulating. Pt states that he is hungry, and wants food. Pt states that he has no pain. Pain resolved last night at 11pm. Pt had a normal BM last night. Dr. Jack discusses DC options with pt. Pt uses [facility] in [place]. Pt has no pain med supply at home. Physical exam stable. no fever, vital signs stable, pleasant, improved, partner at bedside Regular rate and rhythm, clear to auscultation bilaterally Nontender abdomen Plan: Replace K+ 20meq po Heplock IVF Advance diet DC with follow-up with [facility] and Dr. Guerrero Scribed by Brandin Gutierrez under the direct supervision of Dr. Jack. Hospital course: Patient had an uneventful hospital course he was admitted for acute diverticulitis with microperforation and Dr. Guerrero was consulted. Conservative treatment ensued and antibiotics were tolerated and maintain during hospital course along with bowel rest and IV fluids. Pain medication was required but overall he improved enough to be able to eat and drink on his own and will have close follow-up with [facility] in addition with Dr. Guerrero for colonoscopy. Discharge Summary Discharge Physical Examination Allergies: Coded Allergies: No Known Drug Allergies (Unverified , 11/25/12) Vitals & I&Os Vital Signs Date Time Temp Pulse Resp B/P Pulse Ox O2 Delivery O2 Flow Rate FiO2 07/26/16 08:34 98.3 102 20 138/62 91 Room Air Hospital Course Labs (last 24 hrs) Laboratory Tests 07/26/16 05:55: Alanine Aminotransferase (ALT/SGPT) 42, Albumin 3.4, Alkaline Phosphatase 50, Anion Gap 11, Aspartate Amino Transf (AST/SGOT) 26, BUN/Creatinine Ratio 7, Basophils # (Auto) 0.0, Basophils (%) (Auto) 0, Blood Urea Nitrogen 6L, Calcium Level 8.9, Carbon Dioxide Level 21, Chloride Level 110H, Creatinine 0.81, Eosinophils # (Auto) 0.1, Eosinophils (%) (Auto) 1, Estimat Glomerular Filtration Rate > 60, Glucose Level 83, Hematocrit 41, Hemoglobin 13.1L, Lymphocytes # (Auto) 1.6, Lymphocytes (%) (Auto) 21, Mean Corpuscular Hemoglobin 30, Mean Corpuscular Hemoglobin Concent 32, Mean Corpuscular Volume 93, Mean Platelet Volume 12.0H, Monocytes # (Auto) 0.5, Monocytes (%) (Auto) 6, Neutrophils # (Auto) 5.4, Neutrophils (%) (Auto) 71, Platelet Count 193, Potassium Level 3.5L, Red Blood Count 4.39, Red Cell Distribution Width 14.2, Sodium Level 142, Total Bilirubin 0.5, Total Protein 6.5, White Blood Count 7.6 Microbiology 07/24/16 Blood Culture - Preliminary, Resulted No growth 07/24/16 Influenza Types A,B Antigen (SAADIA) - Final, Complete 07/24/16 Urine Culture - Preliminary, Resulted Pending Labs Laboratory Tests 07/26/16 05:55: Alanine Aminotransferase (ALT/SGPT) 42, Albumin 3.4, Alkaline Phosphatase 50, Anion Gap 11, Aspartate Amino Transf (AST/SGOT) 26, BUN/Creatinine Ratio 7, Basophils # (Auto) 0.0, Basophils (%) (Auto) 0, Blood Urea Nitrogen 6, Calcium Level 8.9, Carbon Dioxide Level 21, Chloride Level 110, Creatinine 0.81, Eosinophils # (Auto) 0.1, Eosinophils (%) (Auto) 1, Estimat Glomerular Filtration Rate > 60, Glucose Level 83, Hematocrit 41, Hemoglobin 13.1, Lymphocytes # (Auto) 1.6, Lymphocytes (%) (Auto) 21, Mean Corpuscular Hemoglobin 30, Mean Corpuscular Hemoglobin Concent 32, Mean Corpuscular Volume 93, Mean Platelet Volume 12.0, Monocytes # (Auto) 0.5, Monocytes (%) (Auto) 6, Neutrophils # (Auto) 5.4, Neutrophils (%) (Auto) 71, Platelet Count 193, Potassium Level 3.5, Red Blood Count 4.39, Red Cell Distribution Width 14.2, Sodium Level 142, Total Bilirubin 0.5, Total Protein 6.5, White Blood Count 7.6 Discharge Home Medications: Active Scripts Active Percocet 10-325 mg Tablet (Oxycodone HCl/Acetaminophen) 1 Each Tablet 1 Each PO Q4H PRN Metronidazole 500 Mg Tablet 500 Mg PO TID Ciprofloxacin HCl 500 Mg Tablet 500 Mg PO BID Reported Ibuprofen 800 Mg Tablet 800 Mg PO TID PRN Acetaminophen 500 Mg Tablet 1,000 Mg PO Q8H PRN TAKES 2 (500 MG) TABLETS Proair Hfa (Albuterol Sulfate) 1 Puff Puff 2 Puff IH Q4H PRN Symbicort 80-4.5 Mcg Inhaler (Budesonide/Formoterol Fumarate) 10.2 Gm Hfa.aer.ad 2 Puff IH BID Instructions to patient/family Please see electonic discharge instructions given to patient. Clinical Quality Measures DVT/VTE Risk/Contraindication: Risk Factor Score Per Nursin RFS Level Per Nursing on Admit: 3=High JESUS JACK DO Jul 26, 2016 10:52
[2016-07-26] MEDS ORDERED: METR500T21 PO (10:54)
[2016-07-26] MEDS ORDERED: CIPR500T4 PO (10:54)
[2016-07-26] MEDS ORDERED: OXYC-202 PO (10:54)
--- NOTE | 2016-07-26 10:55 | Discharge Instructions ---
Discharge Instructions Discharge Medications New, Converted or Re-Newed RX: Transmitted to Pharmacy New Medications: Oxycodone HCl/Acetaminophen (Percocet 10-325 mg Tablet) 1 Each Tablet 1 EACH PO Q4H PRN PAIN #30 TAB Ciprofloxacin HCl (Ciprofloxacin HCl) 500 Mg Tablet 500 MG PO BID #10 TAB Metronidazole (Metronidazole) 500 Mg Tablet 500 MG PO TID #15 TAB Continued Medications: Acetaminophen (Acetaminophen) 500 Mg Tablet 1000 MG PO Q8H TAKES 2 (500 MG) TABLETS PRN FEVER TAB Albuterol Sulfate (Proair Hfa) 1 Puff Puff 2 PUFF IH Q4H PRN SHORTNESS OF BREATH Budesonide/Formoterol Fumarate (Symbicort 80-4.5 Mcg Inhaler) 10.2 Gm Hfa.aer.ad 2 PUFF IH BID Ibuprofen (Ibuprofen) 800 Mg Tablet 800 MG PO TID PRN HEADACHE Patient Instructions Goal[facility]Follow [facility] Appt[facility] Patient Instructions: Avoids seeds and nuts Activity & Diet Discharge Diet: Soft Diet, Low Residue Activity as Tolerated: Yes JESUS KNUTSON DO Jul 26, 2016 10:55
[2016-07-26 11:55] VITALS: BP 138/62
[2016-07-26] MEDS ORDERED: metroNIDAZOLE 500 MG (FLAGYL) TAB PO SCH (13:00)
[2016-07-26] MEDS ORDERED: CIPROFLOXACIN 500 MG (CIPRO) TABLET PO SCH (21:00)
== END 2016-07-26 11:55 | disposition home or self-care (01) | DRG 392 ==
LOC: EDUNIT# 10:10 → ER 10:13 → 4TH 13:54
PROVIDERS: ADMIT Internal Medicine; ATTEND Internal Medicine
DX: K57.20 Diverticulitis of large intestine with perforation and abscess without bleeding (principal); N39.0 Urinary tract infection, site not specified; J44.9 Chronic obstructive pulmonary disease, unspecified; J45.909 Unspecified asthma, uncomplicated; I10 Essential (primary) hypertension; E66.9 Obesity, unspecified; F17.210 Nicotine dependence, cigarettes, uncomplicated; M54.9 Dorsalgia, unspecified; E27.9 Disorder of adrenal gland, unspecified; Z68.39 Body mass index [BMI] 39.0-39.9, adult
CPT/HCPCS: 36415; 71010; 74177; 80053; 81000; 83605; 85007; 85025; 85027; 85610; 85730; 87040; 87088; 87804; 94640; 94664; 94760; 96361; 96374

== ENCOUNTER → 2017-01-24 | Outpatient (CLI) | payer MEDICAID, MEDICARE ==
[~2017-01-24] VITALS: Ht 182.9 cm; Wt 117.9 kg
[~2017-01-24] MED LIST changes: +ACET-93 PO; +BUDE10.22 IH; +CIPR500T4 PO; +IBUP-1780 PO; +METR500T21 PO; +OXYC-202 PO; +RT-ALBUINH IH; +methylPREDNISolone 80 MG/ML (DEPO MEDROL) VIAL ONE
[2017-01-24 13:15] VITALS: BP 158/103
[2017-01-24 13:28] VITALS: BP 154/107
--- NOTE | 2017-01-29 11:38 | OPERATIVE REPORT ---
DATE OF SERVICE: DIAGNOSIS: Lumbar radiculopathy. PROCEDURE: Fluoroscopic guided interlaminar epidural steroid injection. PROCEDURE IN DETAIL: After obtaining informed consent from the patient, the patient's chart was reviewed. The patient was then brought to the procedure room and placed in the prone position. A timeout was performed. The back was prepped with antiseptic solution and under fluoro guidance, the patient's lumbar spine was identified at the level of L5-S1. The S1 vertebra was identified with fluoro guidance and approximately 2 mL of 1.5% lidocaine solution was used to anesthetize the skin directly down to the pedicle of the S1 and under fluoro guidance, the tract was anesthetized up to the interlaminar space and the ligamentum flavum. This needle was withdrawn. Then, a 20-gauge 3.5 inch Tuohy needle was then directed following the same tract that was anesthetized with the spinal needle. Using loss of resistance, the epidural space was identified and then the syringe was switched for contrast solution which was injected, approximately 1 mL. After secondary confirmation of epidural access, another syringe was placed and 80 mg of Depo-Medrol was injected. The Tuohy needle was then flushed out with approximately 2 mL of the normal saline used from the loss of resistance syringe. Band-Aids were applied to all the procedure sites. The patient tolerated the procedure well and was taken to the recovery room in stable condition. COMPLICATIONS: None. Job ID: [id number] DocumentID: [id number] Dictated Date: 01/28/2017 10:50:44 Client Experience Manager Date: 01/28/2017 12:43:28 Dictated By: BESS CERVANTES DO
--- NOTE | 2017-03-15 13:53 | OPERATIVE REPORT ---
DATE OF SERVICE: 01/24/2017 DIAGNOSIS: Lumbar radiculopathy. PROCEDURE: Fluoroscopic guided interlaminar epidural steroid injection. PROCEDURE IN DETAIL: After obtaining informed consent from the patient, the patient's chart was reviewed. The patient was then brought to the procedure room and placed in the prone position. A timeout was performed. The back was prepped with antiseptic solution and under fluoro guidance, the patient's lumbar spine was identified at the level of L5-S1. The S1 vertebra was identified with fluoro guidance and approximately 2 mL of 1.5% lidocaine solution was used to anesthetize the skin directly down to the pedicle of the S1 and under fluoro guidance, the tract was anesthetized up to the interlaminar space and the ligamentum flavum. This needle was withdrawn. Then, a 20-gauge 3.5 inch Tuohy needle was then directed following the same tract that was anesthetized with the spinal needle. Using loss of resistance, the epidural space was identified and then the syringe was switched for contrast solution which was injected, approximately 1 mL. After secondary confirmation of epidural access, another syringe was placed and 80 mg of Depo-Medrol was injected. The Tuohy needle was then flushed out with approximately 2 mL of the normal saline used from the loss of resistance syringe. Band-Aids were applied to all the procedure sites. The patient tolerated the procedure well and was taken to the recovery room in stable condition. COMPLICATIONS: None. Job ID: [id number] DocumentID: [id number] Dictated Date: 01/28/2017 10:50:44 Electronic Controls Repairer Supervisor Date: 01/28/2017 12:43:28 Dictated By: BESS CERVANTES DO <Dictated by BESS CERVANTES DO> <Electronically signed by BESS CERVANTES DO> 02/21/17 1526
== END ==
LOC: CARD 13:06
PROVIDERS: ATTEND Pain Medicine Interventional Pain Medicine
DX: M54.16 Radiculopathy, lumbar region (principal)
CPT/HCPCS: 62323

== ENCOUNTER 2017-04-18 12:38 | Outpatient (CLI) | payer MEDICARE ==
[~2017-04-18] VITALS: Ht 182.9 cm; Wt 117.9 kg
[2017-04-18 13:04] VITALS: BP 138/96
[2017-04-18 13:10] VITALS: BP 165/96
--- NOTE | 2017-04-22 00:53 | OPERATIVE REPORT ---
DATE OF SERVICE: 04/18/2017 DIAGNOSIS: Lumbar radiculopathy. PROCEDURE: Fluoroscopic guided interlaminar epidural steroid injection. PROCEDURE IN DETAIL: After obtaining informed consent from the patient, the patient's chart was reviewed. The patient was then brought to the procedure room and placed in the prone position. A timeout was performed. The back was prepped with antiseptic solution and under fluoro guidance, the patient's lumbar spine was identified at the level of L4-L5. The L4-L5 vertebra was identified with fluoro guidance and approximately 2 mL of 1.5% lidocaine solution was used to anesthetize the skin directly down to the pedicle of the L4-L5 and under fluoroscopic guidance, the tract was anesthetized up to the interlaminar space and the ligamentum flavum. This needle was withdrawn. Then, a 20-gauge 3.5 inch Tuohy needle was then directed following the same tract that was anesthetized with the spinal needle. Using loss of resistance, the epidural space was identified and then the syringe was switched for contrast solution which was injected, approximately 1 mL. After secondary confirmation of epidural access, another syringe was placed and 80 mg of Depo-Medrol was injected. The Tuohy needle was then flushed out with approximately 2 mL of the normal saline used from the loss of resistance syringe. Band-Aids were applied to all the procedure sites. The patient tolerated the procedure well and was taken to the recovery room in stable condition. COMPLICATIONS: None. Job ID: [id number] DocumentID: [id number] Dictated Date: 04/21/2017 20:31:33 Box Stapler Date: 04/22/2017 00:53:19 Dictated By: BESS CERVANTES DO
== END 2017-04-18 13:38 | disposition home or self-care (01) ==
LOC: CARD 12:38
PROVIDERS: ATTEND Pain Medicine Interventional Pain Medicine
DX: M54.16 Radiculopathy, lumbar region (principal)
CPT/HCPCS: 62323

== ENCOUNTER → 2017-06-26 | Outpatient (CLI) | payer MEDICARE ==
[~2017-06-26] MED LIST changes: +HYDR-34 PO; -HYDR-3816 PO; -methylPREDNISolone 80 MG/ML (DEPO MEDROL) VIAL ONE
--- NOTE | 2017-06-26 11:49 | Diagnostic Imaging Report ---
PROCEDURE: MRI lumbar spine. TECHNIQUE: Multiplanar, multisequence MRI of the lumbar spine was performed without contrast. DATE: June 26, 2017. COMPARISON: MRI lumbar spine March 09, 2015. INDICATION: 31-year-old male, low back pain. FINDINGS: There is normal lumbosacral spine alignment. There is no visualized pars interarticularis defect. There is no compression deformity. There are small Schmorl's nodes adjacent to the T11-T12 disc space. The additional bone marrow signal is unremarkable. There is no evidence of marrow infiltrating or replacing process. The visualized cord and conus medullaris is unremarkable and terminates at the L1-L2 level. There is very mild disc height loss at L5-S1. Additional disc heights are well preserved. L1-L2: There is no disc bulge. The facet joints and ligamentum flavum are unremarkable. There is no foraminal narrowing. There is no spinal canal stenosis. L2-L3: There is no disc bulge. The facet joints and ligamentum flavum are unremarkable. There is no foraminal narrowing. There is no spinal canal stenosis. L3-L4: There is no disc bulge. There are left facet degenerative changes. There is moderate left foraminal narrowing. There is no spinal canal stenosis. L4-L5: There is no disc bulge. There are right facet degenerative changes. There is no ligamentum flavum hypertrophy. There is no high-grade foraminal narrowing. There is no spinal canal stenosis. L5-S1: There is a left paracentral disc protrusion without identified definite nerve root contact. The facet joints and ligamentum flavum are unremarkable. There is no foraminal narrowing. There is no spinal canal stenosis. IMPRESSION: 1. Facet degenerative changes on the left at L3-L4 with associated moderate left foraminal narrowing. 2. Right facet degenerative changes at L4-L5 without high-grade foraminal narrowing. 3. L5-S1 left paracentral disc protrusion without definite nerve root contact, foraminal narrowing, or spinal stenosis. 4. Overall findings are essentially unchanged since comparison MRI lumbar spine of March 09, 2015. Dictated by: Dictated on workstation # [id number]
== END ==
LOC: RAD 10:37
PROVIDERS: ATTEND Pain Medicine Interventional Pain Medicine
DX: M48.061 Spinal stenosis, lumbar region without neurogenic claudication (principal); M51.27 Other intervertebral disc displacement, lumbosacral region; M47.26 Other spondylosis with radiculopathy, lumbar region
CPT/HCPCS: 72148

== ENCOUNTER 2017-09-05 13:03 | Outpatient (CLI) | payer MEDICARE, MEDICAID ==
[~2017-09-05] VITALS: Ht 182.9 cm; Wt 122.5 kg
[2017-09-05] MEDS ORDERED: methylPREDNISolone 80 MG/ML (DEPO MEDROL) VIAL ONE (13:14)
[2017-09-05 13:33] VITALS: BP 154/88
[2017-09-05 13:50] VITALS: BP 142/119
--- NOTE | 2017-09-05 23:04 | OPERATIVE REPORT ---
DATE OF SERVICE: 09/05/2017 DIAGNOSIS: Lumbar radiculopathy. PROCEDURE: Fluoroscopic guided interlaminar epidural steroid injection. PROCEDURE IN DETAIL: After obtaining informed consent from the patient, the patient's chart was reviewed. The patient was then brought to the procedure room and placed in the prone position. A timeout was performed. The back was prepped with antiseptic solution and under fluoro guidance, the patient's lumbar spine was identified at the level of L3-L4. The L3-L4 vertebra was identified with fluoro guidance and approximately 2 mL of 1.5% lidocaine solution was used to anesthetize the skin directly down to the pedicle of the L3-L4 and under fluoroscopic guidance, the tract was anesthetized up to the interlaminar space and the ligamentum flavum. This needle was withdrawn. Then, a 20-gauge 3.5 inch Tuohy needle was then directed following the same tract that was anesthetized with the spinal needle. Using loss of resistance, the epidural space was identified and then the syringe was switched for contrast solution which was injected, approximately 1 mL. After secondary confirmation of epidural access, another syringe was placed and 80 mg of Depo-Medrol was injected. The Tuohy needle was then flushed out with approximately 2 mL of the normal saline used from the loss of resistance syringe. Band-Aids were applied to all the procedure sites. The patient tolerated the procedure well and was taken to the recovery room in stable condition. COMPLICATIONS: None. Job ID: [id number] DocumentID: [id number] Dictated Date: 09/05/2017 13:51:01 Tunneller Date: 09/05/2017 23:03:25 Dictated By: BESS CERVANTES DO
== END 2017-09-05 13:51 | disposition home or self-care (01) ==
LOC: CARD 13:03
PROVIDERS: ATTEND Pain Medicine Interventional Pain Medicine
DX: M54.16 Radiculopathy, lumbar region (principal); G89.4 Chronic pain syndrome; M48.061 Spinal stenosis, lumbar region without neurogenic claudication
CPT/HCPCS: 62323

== ENCOUNTER 2017-10-31 13:15 | Outpatient (CLI) | payer MEDICARE, MEDICAID ==
[~2017-10-31] VITALS: Ht 182.9 cm; Wt 120.2 kg
[2017-10-31] MEDS ORDERED: methylPREDNISolone 80 MG/ML (DEPO MEDROL) VIAL ONE (13:26)
[2017-10-31 13:32] VITALS: BP 156/99
[2017-10-31 13:57] VITALS: BP 181/116
--- NOTE | 2017-10-31 22:26 | OPERATIVE REPORT ---
DATE OF SERVICE: 10/31/2017 DIAGNOSES: 1. Lumbar spondylosis. 2. Lumbar facet arthropathy. PROCEDURE: Fluoroscopic-guided facet medial branch block at L3, L4, L5, and S1 on the right. PROCEDURE IN DETAIL: After obtaining informed consent from the patient, the patient's chart was reviewed. The patient was then brought to the procedure room and placed in prone position. Time-out was performed. The area and the right neck, upper back, lower back was prepped with antiseptic solution and under fluoroscopic guidance, the patient's right side L3, L4, L5, and S1 area was examined and the facet joints listed above were identified. Right-sided L3, L4, L5, and S1 area was identified under fluoroscopy. A 22-gauge 3-1/2 inch spinal needle was inserted and advanced under fluoroscopy down to the area where the pedicle and the transverse process meet and approximately 1 mL of 1% lidocaine was injected at this level. This was then repeated for the remainder of the levels stated above. Afterwards, the needle was removed. Band-Aids were applied to all sites and the patient tolerated the procedure well and was taken to the recovery area in stable condition. COMPLICATIONS: None. Job ID: [id number] DocumentID: [id number] Dictated Date: 10/31/2017 13:58:14 Machine Shop Inspector Date: 10/31/2017 17:15:51 Dictated By: BESS CERVANTES DO
== END 2017-10-31 13:58 | disposition home or self-care (01) ==
LOC: CARD 13:15
PROVIDERS: ATTEND Pain Medicine Interventional Pain Medicine
DX: M54.16 Radiculopathy, lumbar region (principal)
CPT/HCPCS: 64493; 64494; 64495

== ENCOUNTER → 2017-12-02 | Outpatient (CLI) | payer MEDICARE, MEDICAID ==
[~2017-12-02] MED LIST changes: +RT-ALBUTEROL SULF 2.5 MG/3 ML PRE-MIX VIAL INH ONE; +RT-ALBUTEROL SULF 2.5 MG/3 ML PRE-MIX VIAL ONE
== END ==
LOC: RT 14:08
PROVIDERS: ATTEND Internal Medicine Infectious Disease
DX: Z02.71 Encounter for disability determination (principal)
CPT/HCPCS: 94060; 94729

== ENCOUNTER → 2018-03-17 | Outpatient (CLI) | payer MEDICARE, MEDICAID ==
[~2018-03-17] MED LIST changes: +HYDR-4226 PO; -HYDR-757 PO; +METR-197 PO; -METR500T21 PO; -OXYC-202 PO; +OXYC1TAB12 PO; -RT-ALBUTEROL SULF 2.5 MG/3 ML PRE-MIX VIAL INH ONE; -RT-ALBUTEROL SULF 2.5 MG/3 ML PRE-MIX VIAL ONE
--- NOTE | 2018-03-17 09:46 | Diagnostic Imaging Report ---
PROCEDURE: US right lower extremity venous. TECHNIQUE: Multiple real-time grayscale images were obtained over the right lower extremity in various projections. Additional duplex Doppler and color Doppler images were also obtained. INDICATION: Right lower extremity pain and edema COMPARISON: None FINDINGS: The right common femoral vein, femoral vein, deep femoral vein, and popliteal vein are normal in appearance. These vessels show normal compressibility, color flow and doppler augmentation. The visualized deep calf veins demonstrate no distinct intraluminal thrombus. IMPRESSION: 1. No sonographic evidence of deep venous thrombosis in the right lower extremity. Dictated by: Dictated on workstation # [id number]
== END ==
LOC: RAD 08:34
PROVIDERS: ATTEND Nurse Practitioner Family
DX: I99.8 Other disorder of circulatory system (principal); R60.0 Localized edema; M79.661 Pain in right lower leg; J44.9 Chronic obstructive pulmonary disease, unspecified; I10 Essential (primary) hypertension; M51.36 Other intervertebral disc degeneration, lumbar region

== ENCOUNTER → 2018-07-03 | Outpatient (CLI) | payer MEDICARE, MEDICAID ==
[~2018-07-03] MED LIST changes: +METR-145 PO; -METR-197 PO
--- NOTE | 2018-07-03 15:15 | Diagnostic Imaging Report ---
PROCEDURE: MRI lumbar spine. TECHNIQUE: Multiplanar, multisequence MRI of the lumbar spine was performed without contrast. INDICATION: Low-back pain and bilateral leg pain and numbness. COMPARISON: Correlation is made with prior MRI of the lumbar spine from 06/26/2017. FINDINGS: Curvature and alignment of the lumbar spine is normal. Vertebral body heights are maintained. Marrow signal intensity is unremarkable. No geographic marrow lesion or acute compression fracture is seen. Fairly normal height and signal intensity to the lumbar disc is again noted apart from some degenerative changes of L5-S1 with some mild disc space narrowing and desiccation. Conus is unremarkable at the L1-S2 level. T12-L1: Central canal and neural foramina are widely patent. L1-2: Unremarkable. L2-3: Unremarkable. L3-4: Facet degenerative changes again noted, resulting in left lateral recess stenosis and moderate left neural foraminal stenosis. Right neural foramen and central canal are patent. This is similar to prior. L4-5: Degenerative facet changes are seen. Central canal remains patent. No significant neural foraminal narrowing is seen L5-S1: Midline and left paramidline broad-based disc bulge appears less prominent on today's study. No canal narrowing is seen. There is no neural foraminal stenosis. Paraspinous tissues are unremarkable. IMPRESSION: Overall very similar appearance to the lumbar spine when compared with prior study from one year earlier. Lower lumbar facet degenerative changes are noted again resulting in left neural foraminal narrowing at L3-4. Disc bulging at L5-S1 appears improved. No central canal stenosis is detected. Dictated by: Dictated on workstation # [id number]
== END ==
LOC: RAD 13:48
PROVIDERS: ATTEND Anesthesiology Pain Medicine
DX: M47.26 Other spondylosis with radiculopathy, lumbar region (principal); M48.061 Spinal stenosis, lumbar region without neurogenic claudication; M51.17 Intervertebral disc disorders with radiculopathy, lumbosacral region
CPT/HCPCS: 72148

== ENCOUNTER → 2020-03-09 | Outpatient (CLI) | payer MEDICARE, MEDICAID ==
[~2020-03-09] MED LIST changes: +BARIUM for suspension 96% w/w (Vanilla Silq Medium Density) PO ONE; +BARIUM for suspension 98% w/w (Vanilla Silq High Density) PO ONE
--- NOTE | 2020-03-09 10:26 | Diagnostic Imaging Report ---
EXAMINATION: Upper GI exam. INDICATION: Preop gastric surgery. COMPARISON: There are no prior studies available for comparison. FINDINGS: A double contrast exam was performed. The patient swallowed the contrast material without difficulty. There was no delay or obstruction to the passage of barium through the esophagus. There was no sign of a hiatal hernia nor was there any evidence for gastroesophageal reflux. The stomach showed good distensibility and motility. There was no mass or ulceration evident. The folds of the duodenal bulb were somewhat irregular. This could be secondary to mild duodenitis, either chronic or acute. There was no active ulcer noted. The proximal small bowel was unremarkable. IMPRESSION: 1. There was no evidence for a hiatal hernia or gastroesophageal reflux. 2. There was no gastric mass or ulceration identified. 3. The folds of the duodenal bulb were somewhat irregular. This may be secondary to mild duodenitis. Whether this is chronic or acute, however, is unclear. There is no active ulcer identified. 4. The proximal small bowel was within normal limits. Dictated by: Dictated on workstation # [id number]
== END ==
LOC: RAD 09:00
PROVIDERS: ATTEND Surgery
DX: K21.9 Gastro-esophageal reflux disease without esophagitis (principal); E66.01 Morbid (severe) obesity due to excess calories; Z68.41 Body mass index [BMI] 40.0-44.9, adult
CPT/HCPCS: 74246

== ENCOUNTER → 2020-05-25 | Outpatient (CLI) | payer MEDICARE, MEDICAID ==
[~2020-05-25] MED LIST changes: -BARIUM for suspension 96% w/w (Vanilla Silq Medium Density) PO ONE; -BARIUM for suspension 98% w/w (Vanilla Silq High Density) PO ONE; +RT-ALBUTEROL SULF 2.5 MG/3 ML PRE-MIX VIAL INH ONE
== END ==
LOC: RT 13:00
PROVIDERS: ATTEND Nurse Practitioner Family
DX: J44.9 Chronic obstructive pulmonary disease, unspecified (principal)
CPT/HCPCS: 94060; 94726; 94729

== ENCOUNTER 2020-11-15 10:18 | Outpatient (CLI) | payer MEDICARE, MEDICAID ==
[~2020-11-15 10:18] MED LIST changes: -CIPR500T4 PO; +CIPR500T5 PO; -RT-ALBUTEROL SULF 2.5 MG/3 ML PRE-MIX VIAL INH ONE
== END 2020-11-15 10:36 ==
LOC: SLEEP 10:18
PROVIDERS: ATTEND Nurse Practitioner Family
DX: G47.33 Obstructive sleep apnea (adult) (pediatric) (principal)
CPT/HCPCS: G0399

== ENCOUNTER 2021-02-25 22:45 | Emergency (ER) | payer MEDICARE, MEDICAID ==
[~2021-02-25] VITALS: Ht 182.9 cm; Wt 136.0 kg
[2021-02-25] MEDS ORDERED: metroNIDAZOLE 500MG/100ML IVPB 100 ML IV ONE (23:00)
[2021-02-25] MEDS ORDERED: fentaNYL INJ 100 MCG/2 ML AMP IVP ONE (23:00)
[2021-02-25] MEDS ORDERED: cefTRIAXone 1,000 MG in WATER (STERILE) FOR INJECTION 10 ML IV ONE (23:00)
[2021-02-25] MEDS ORDERED: LACTATED RINGERS 1,000 ML IV ONE ×2 (23:00)
--- NOTE | 2021-02-25 23:03 | ED Abdominal Pain ---
General Stated Complaint: UPPER R ABD PAIN Source of Information: Patient Exam Limitations: No Limitations History of Present Illness Date Seen by Provider: Feb 25, 2021 Time Seen by Provider: 22:46 Initial Comments Patient ER by private conveyance chief complaint second day of bloody diarrhea and right upper quadrant right lower quadrant abdominal 10 out of 10 pain radiating through to his flank. History of diverticulitis. He is not having any nausea fevers chills cough shortness of air chest pain. No history of abdominal surgeries or trauma. He has hypertension hyperlipidemia and took 2 mixed drinks tonight see if it would calm the pain down. He tried 800 of ibuprofen with no relief earlier today. He follows with Dario at [facility]. Allergies and Home Medications Allergies Coded Allergies: No Known Drug Allergies (Unverified , 11/25/12) Patient Home Medication List Home Medication List Reviewed: Yes Acetaminophen (Acetaminophen) 500 Mg Tablet, 1,000 MG PO Q8H PRN for FEVER, (Reported) Entered as Reported by: JOVANI WOLF on 07/24/16 1538 Albuterol Sulfate (Proair Hfa) 1 Puff Puff, 2 PUFF IH Q4H PRN for SHORTNESS OF BREATH, (Reported) Entered as Reported by: JOVANI WOLF on 07/24/16 1534 Budesonide/Formoterol Fumarate (Symbicort 80-4.5 Mcg Inhaler) 10.2 Gm Hfa.aer.ad, 2 PUFF IH BID, (Reported) Entered as Reported by: JOVANI WOLF on 07/24/16 1534 Ciprofloxacin HCl (Ciprofloxacin HCl) 500 Mg Tablet, 500 MG PO BID Prescribed by: JESUS KNUTSON on 07/26/16 1054 Ibuprofen (Ibuprofen) 800 Mg Tablet, 800 MG PO TID PRN for HEADACHE, (Reported) Entered as Reported by: JOVANI WOLF on 07/24/16 1538 Metronidazole (Metronidazole) 500 Mg Tablet, 500 MG PO TID Prescribed by: JESUS KNUTSON on 07/26/16 1054 Oxycodone HCl/Acetaminophen (Percocet 10-325 mg Tablet) 1 Each Tablet, 1 EACH PO Q4H PRN for PAIN Prescribed by: JESUS KNUTSON on 07/26/16 1054 Review of Systems Review of Systems Constitutional: No chills, No diaphoresis EENTM: No Blurred Vision, No Double Vision Respiratory: Denies Cough, Denies Shortness of Air Cardiovascular: Denies Chest Pain, Denies Lightheadedness Gastrointestinal: See HPI, Abdominal Pain; Denies Constipated; Diarrhea, Rectal Bleeding Genitourinary: Denies Burning, Denies Discharge Musculoskeletal: No back pain, No joint pain Psychiatric/Neurological: Denies Anxiety, Denies Depressed All Other Systems Reviewed Negative Unless Noted: Yes Past Hrvtech-Trykjq-Tikoif Hx Patient Social History Tobacco Use?: No Substance use?: No Alcohol Use?: Yes Alcohol type: Hard Liquor Alcohol Frequency: Once in a while Immunizations Up To Date Tetanus Booster (TDap): Less than 5yrs Seasonal Allergies Seasonal Allergies: No Past Medical History Surgeries: No Respiratory: No Cardiac: No Hypertension Neurological: No Reproductive Disorders: No Genitourinary: No Gastrointestinal: No Musculoskeletal: Yes Degenerate Disk Disease, Chronic Back Pain Endocrine: No HEENT: No Cancer: No Psychosocial: No Integumentary: No Family Medical History No Pertinent Family Hx, CAD Under 55 Years Old, Diabetes Physical Exam Vital Signs Vital Signs - First Documented 02/25/21 22:50 Temp 36.1 Pulse 100 Resp 16 B/P (MAP) 145/109 (121) Pulse Ox 97 O2 Delivery Room Air Capillary Refill : Height/Weight/BMI Height: 6'0.00" Weight: 265lbs. 0.0oz. [id number]; 35.9 BMI Method:Stated General Appearance: WD/WN, no apparent distress HEENT: normal ENT inspection, TMs normal, pharynx normal Neck: full range of motion, supple, normal inspection Respiratory: lungs clear, normal breath sounds, no respiratory distress, no accessory muscle use Cardiovascular: normal peripheral pulses, regular rate, rhythm, tachycardia (101) Gastrointestinal: normal bowel sounds, no organomegaly, guarding (Right upper quadrant), tenderness (Exquisite tenderness to light palpation right upper quadrant without Martin's punch tenderness to the costovertebral angle), other (Negative for mesenteric signs or Okeefe sign) Extremities: normal inspection, normal capillary refill Neurologic/Psychiatric: alert, normal mood/affect, oriented x 3 Skin: normal color, warm/dry Focused Exam Sepsis Stage: Ruled Out Reason for ruling out sepsis: Does not meet sepsis criteria. Lactate Level 02/25/21 23:05: Lactic Acid Level 2.09*H Lactic Acid Level Laboratory Tests Test 02/25/21 23:05 Lactic Acid Level 2.09 MMOL/L (0.50-2.00) *H Progress/Results/Core Measures Results/Orders Lab Results Laboratory Tests Test 02/25/21 23:04 02/25/21 23:05 Range/Units Urine Color YELLOW Urine Clarity CLEAR Urine pH 6.0 5-9 Urine Specific [place] <=1.005 1.016-1.022 Urine Protein NEGATIVE NEGATIVE Urine Glucose (UA) NEGATIVE NEGATIVE Urine Ketones NEGATIVE NEGATIVE Urine Nitrite NEGATIVE NEGATIVE Urine Bilirubin NEGATIVE NEGATIVE Urine Urobilinogen 0.2 < = 1.0 MG/DL Urine Leukocyte Esterase NEGATIVE NEGATIVE Urine RBC (Auto) NEGATIVE NEGATIVE Urine RBC NONE /HPF Urine WBC NONE /HPF Urine Crystals NONE /LPF Urine Bacteria NEGATIVE /HPF Urine Casts NONE /LPF Urine Mucus NEGATIVE /LPF Urine Culture Indicated NO White Blood Count 12.1 H 4.3-11.0 10^3/uL Red Blood Count 4.59 4.30-5.52 10^6/uL Hemoglobin 14.5 13.3-17.7 g/dL Hematocrit 44 40-54 % Mean Corpuscular Volume 95 80-99 fL Mean Corpuscular Hemoglobin 32 25-34 pg Mean Corpuscular Hemoglobin Concent 33 32-36 g/dL Red Cell Distribution Width 12.9 10.0-14.5 % Platelet Count 262 130-400 10^3/uL Mean Platelet Volume 10.8 9.0-12.2 fL Immature Granulocyte % (Auto) 0 % Neutrophils (%) (Auto) 60 42-75 % Lymphocytes (%) (Auto) 33 12-44 % Monocytes (%) (Auto) 5 0-12 % Eosinophils (%) (Auto) 2 0-10 % Basophils (%) (Auto) 0 0-10 % Neutrophils # (Auto) 7.3 1.8-7.8 10^3/uL Lymphocytes # (Auto) 3.9 1.0-4.0 10^3/uL Monocytes # (Auto) 0.6 0.0-1.0 10^3/uL Eosinophils # (Auto) 0.2 0.0-0.3 10^3/uL Basophils # (Auto) 0.0 0.0-0.1 10^3/uL Immature Granulocyte # (Auto) 0.1 0.0-0.1 10^3/uL Prothrombin Time 12.8 12.2-14.7 SEC INR Comment 0.9 0.8-1.4 Activated Partial Thromboplast Time 27 24-35 SEC Sodium Level 136 135-145 MMOL/L Potassium Level 3.6 3.6-5.0 MMOL/L Chloride Level 103 98-107 MMOL/L Carbon Dioxide Level 18 L 21-32 MMOL/L Anion Gap 15 H 5-14 MMOL/L Blood Urea Nitrogen 18 7-18 MG/DL Creatinine 0.97 0.60-1.30 MG/DL Estimat Glomerular Filtration Rate 87 BUN/Creatinine Ratio 19 Glucose Level 94 70-105 MG/DL Lactic Acid Level 2.09 *H 0.50-2.00 MMOL/L Calcium Level 9.2 8.5-10.1 MG/DL Corrected Calcium 9.1 8.5-10.1 MG/DL Total Bilirubin 0.4 0.1-1.0 MG/DL Aspartate Amino Transf (AST/SGOT) 29 5-34 U/L Alanine Aminotransferase (ALT/SGPT) 52 0-55 U/L Alkaline Phosphatase 50 40-136 U/L Total Protein 7.5 6.4-8.2 GM/DL Albumin 4.1 3.2-4.5 GM/DL My Orders Orders - BRITNEY CAMPBELL Cbc With Automated Diff (02/25/21 22:55) Comprehensive Metabolic Panel (02/25/21 22:55) Blood Culture (02/25/21 22:55) Sputum Culture (02/25/21 22:55) Urinalysis (02/25/21 22:55) Urine Culture (02/25/21 22:55) Protime With Inr (02/25/21 22:55) Partial Thromboplastin Time (02/25/21 22:55) Ed Iv/Invasive Line Start (02/25/21 22:55) Ed Iv/Invasive Line Start (02/25/21 22:55) Vital Signs Adult Sepsis Patie Q15M (02/25/21 22:55) O2 (02/25/21 22:55) Remove Rings In Anticipation O (02/25/21 22:55) Lactic Acid Analyzer (02/25/21 22:55) Lactated Ringers (Lr 1000 Ml Iv Solution (02/25/21 23:00) Ceftriaxone (Rocephin) (02/25/21 23:00) Metronidazole 500mg/100ml Ivpb (Flagyl 5 (02/25/21 23:00) Ed Iv/Invasive Line Start (02/25/21 22:55) Lactated Ringers (Lr 1000 Ml Iv Solution (02/25/21 23:00) Fentanyl Inj (Sublimaze Injection) (02/25/21 23:00) Ct Abdomen/Pelvis W (02/25/21 22:55) Iohexol Injection (Omnipaque 350 Mg/Ml 1 (02/26/21 00:15) Received Contrast (Hold Metformin- Contr (02/26/21 00:15) Sodium Chloride Flush (Catheter Flush Sy (02/26/21 00:15) Ns (Ivpb) (Sodium Chloride 0.9% Ivpb Bag (02/26/21 00:15) Fentanyl Inj (Sublimaze Injection) (02/26/21 00:45) Medications Given in ED Current Medications Medications Dose Ordered Sig/Feliciano Route Start Time Stop Time Status Last Admin Dose Admin Ceftriaxone Sodium 1000 mg/ Sterile Water 10 ml @ 200 mls/hr ONCE ONCE IV 02/25/21 23:00 02/25/21 23:02 DC 02/25/21 23:24 200 MLS/HR Fentanyl Citrate 50 mcg ONCE ONCE IVP 02/26/21 00:45 02/26/21 00:46 DC 02/26/21 00:58 50 MCG Fentanyl Citrate 75 mcg ONCE ONCE IVP 02/25/21 23:00 02/25/21 23:01 DC 02/25/21 23:18 75 MCG Iohexol 100 ml ONCE ONCE IV 02/26/21 00:15 02/26/21 00:16 DC 02/26/21 00:06 100 ML Lactated Ringer's 1,000 ml @ 0 mls/hr Q0M ONCE IV 02/25/21 23:00 02/25/21 23:01 DC 02/26/21 01:03 999 MLS/HR Lactated Ringer's 1,000 ml @ 0 mls/hr Q0M ONCE IV 02/25/21 23:00 02/25/21 23:01 DC 02/25/21 23:18 999 MLS/HR Metronidazole 100 ml @ 100 mls/hr ONCE ONCE IV 10/9/21 23:00 02/25/21 23:59 DC 02/26/21 00:18 100 MLS/HR Sodium Chloride 10 ml NEEDED PRN IV 02/26/21 00:15 02/26/21 00:06 10 ML Sodium Chloride 100 ml ONCE ONCE IV 02/26/21 00:15 02/26/21 00:16 DC 02/26/21 00:06 80 ML Vital Signs/I&O 02/25/21 22:50 Temp 36.1 Pulse 100 Resp 16 B/P (MAP) 145/109 (121) Pulse Ox 97 O2 Delivery Room Air 02/26/21 00:00 Intake Total 10 ml Balance 10 ml Progress Progress Note : Time: 23:02 Progress Note Because of his tachycardia we will give him a septic work-up including 2 L which would be about 20 mL/kg based on adjusted ideal body weight of 220 pounds. Rocephin and Flagyl. 75 mcg of fentanyl IV. CT of the abdomen pelvis with IV contrast. Suspect diverticulitis versus less likely gallbladder, PUD or appendix. Diagnostic Imaging Diagonstic Imaging: CT (With IV count) Plain Films/CT/US/NM/MRI: abdomen, pelvis Comments No acute findings. 4 cm adenoma of the left adrenal gland is again noted. Its size may warrant elective surgical consultation. Reviewed: Reviewed [place] Study, Reviewed by Me Departure Impression Primary Impression: Diverticulitis of intestine Qualified Codes: K57.33 - Diverticulitis of large intestine without perforation or abscess with bleeding Additional Impression: Adenoma of left adrenal gland Disposition: HOME, SELF-CARE Condition: Improved Departure-Patient Inst. Decision time for Depature: 01:49 Referrals: [facility] (PCP/Family) Primary Care Physician Patient Instructions: Diverticulitis (DC) Add. Discharge Instructions: Drink plenty of fluids. Do not use Imodium or Pepto-Bismol to stop your di arrhea. Tylenol 1000 mg every 8 hours as necessary for pain. Zofran 1 tablet under the tongue every 6 hours as necessary for nausea and/or vomiting. Flagyl 1 tablet 3 times a day for the next week. Ciprofloxacin 1 capsule twice a day for the next week. Return to the ER for worsening symptoms. Follow-up with your primary care doctor if not seeing some improvement by the end of next week. Hydrocodone 1 tablet every 4-6 hours for severe pain. Scripts Ondansetron (Ondansetron Odt) 4 Mg Tab.rapdis 4 MG PO Q6H PRN for NAUSEA/VOMITING, #8 TAB 0 Refills Prov: BRITNEY CAMPBELL 02/26/21 Metronidazole (Flagyl) 500 Mg Tablet 500 MG PO TID for 7 Days, #21 TAB 0 Refills Prov: BRITNEY CAMPBELL 02/26/21 Ciprofloxacin HCl (Ciprofloxacin HCl) 500 Mg Tablet 500 MG PO BID for 7 Days, #14 TAB 0 Refills Prov: BRITNEY CAMPBELL 02/26/21 Hydrocodone/Acetaminophen (Hydrocodone-Acetamin 5-325 mg) 1 Each Tablet 1 TAB PO Q4H PRN for PAIN-MODERATE (5-7), #20 TAB 0 Refills Prov: BRITNEY CAMPBELL 02/26/21 Work/School Note: Work Release Form Date Seen in the Emergency Department: Feb 26, 2021 Return to Work: Mar 01, 2021 Restrictions: No Restrictions BRITNEY CAMPBELL Feb 25, 2021 23:03
[2021-02-25 23:18] LABS: BASOPHILS % (AUTO) 0 % (0-10); EOSINOPHILS # (AUTO) 0.2 10^3/uL (0.0-0.3); EOSINOPHILS % (AUTO) 2 % (0-10); HEMATOCRIT 44 % (40-54); HEMOGLOBIN 14.5 g/dL (13.3-17.7); LYMPHOCYTES # (AUTO) 3.9 10^3/uL (1.0-4.0); LYMPHOCYTES % (AUTO) 33 % (12-44); MEAN CORPUSCULAR HEMOGLOBIN 32 pg (25-34); MEAN CORPUSCULAR HGB CONC 33 g/dL (32-36); MEAN CORPUSCULAR VOLUME 95 fL (80-99); MEAN PLATELET VOLUME 10.8 fL (9.0-12.2); MONOCYTES # (AUTO) 0.6 10^3/uL (0.0-1.0); MONOCYTES % (AUTO) 5 % (0-12); NEUTROPHILS # (AUTO) 7.3 10^3/uL (1.8-7.8); NEUTROPHILS % (AUTO) 60 % (42-75); PLATELET COUNT 262 10^3/uL (130-400); WHITE BLOOD COUNT 12.1 10^3/uL (4.3-11.0)
[2021-02-25 23:18] LABS: BILIRUBIN,URINE NEGATIVE (NEGATIVE); CLARITY,URINE CLEAR; COLOR,URINE YELLOW; GLUCOSE, URINE (UA) NEGATIVE (NEGATIVE); KETONES,URINE NEGATIVE (NEGATIVE); LEUKOCYTE ESTERASE ,URINE NEGATIVE (NEGATIVE); NITRITE,URINE NEGATIVE (NEGATIVE); PROTEIN,URINE NEGATIVE (NEGATIVE)
[2021-02-25 23:29] LABS: ALBUMIN 4.1 GM/DL (3.2-4.5); POTASSIUM 3.6 MMOL/L (3.6-5.0)
[2021-02-25 23:30] LABS: CALCIUM 9.2 MG/DL (8.5-10.1)
[2021-02-25 23:32] LABS: INR 0.9 (0.8-1.4); PROTHROMBIN TIME PATIENT 12.8 SEC (12.2-14.7); TOTAL PROTEIN 7.5 GM/DL (6.4-8.2)
[2021-02-25 23:33] LABS: BILIRUBIN,TOTAL 0.4 MG/DL (0.1-1.0)
[2021-02-25 23:35] LABS: CREATININE SERUM 0.97 MG/DL (0.60-1.30)
[2021-02-25 23:52] LABS: BACTERIA,URINE NEGATIVE /HPF
[2021-02-26] MEDS ORDERED: CATHETER FLUSH 10 ML SYR IV PRN (00:15)
[2021-02-26] MEDS ORDERED: NS 100 ML (IVPB) BAG IV ONE (00:15)
[2021-02-26] MEDS ORDERED: IOHEXOL 350 MG/ML 100 ML (OMNIPAQUE 350) VIAL IV ONE (00:15)
[2021-02-26] MEDS ORDERED: HOLD METFORMIN - RECEIVED CONTRAST 20 ML VIAL IV SCH (00:15)
[2021-02-26] MEDS ORDERED: fentaNYL INJ 100 MCG/2 ML AMP IVP ONE (00:45)
[2021-02-26] MEDS ORDERED: ONDA4TAB11 PO (01:51)
[2021-02-26] MEDS ORDERED: CIPR500T5 PO (01:51)
[2021-02-26] MEDS ORDERED: ACHD5005 PO ×2 (01:51→12:24)
[2021-02-26] MEDS ORDERED: METR500T PO (01:51)
[2021-02-26 02:00] VITALS: BP 116/56
--- NOTE | 2021-02-26 08:18 | Diagnostic Imaging Report ---
CT ABDOMEN/PELVIS W TECHNIQUE: Multiple contiguous axial images were obtained through the abdomen and pelvis after administration of intravenous contrast. All CT scans use one or more of the following dose optimizing techniques: automated exposure control, MA and/or KvP adjustment based on patient size and exam type or iterative reconstruction. INDICATION: Right upper quadrant pain COMPARISON: CT abdomen and pelvis of 07/24/2016 FINDINGS: Lower chest: The lung bases are clear. No pericardial or pleural effusion. Peritoneum: No free intraperitoneal air or fluid. Liver and biliary system: Liver is enlarged measuring 21 cm in length and has low attenuation that is likely due to hepatic steatosis. No focal hepatic lesion. The gallbladder is normal. No biliary duct dilation. Spleen and Pancreas: Spleen is normal. The pancreas enhances normally without mass lesion or peripancreatic inflammatory changes. Adrenals: Left adrenal low-attenuation nodule has slightly increased in size since prior examination now measuring 3.6 x 4.0 cm (previously 3.6 x 3.2 cm). tract: The kidneys enhance normally without suspicious mass or obstruction. Urinary bladder is distended without wall thickening. No renal or ureteral stones. Prostate is not enlarged. GI tract: Stomach is decompressed. No bowel obstruction. No pericolonic inflammatory changes. Normal appendix. Vasculature and Lymph nodes: Normal caliber aorta. No abdominal or pelvic lymphadenopathy. Musculoskeletal: No concerning osseous lesion. IMPRESSION: 1. No acute obstructive or inflammatory process. 2. Hepatomegaly with diffuse hepatic steatosis. 3. Left adrenal low-attenuation nodule has mildly increased in size since 2017, but remains highly likely adenoma. Consider follow-up MRI abdomen without and with IV contrast per the adrenal protocol for more complete characterization. 4. Findings are in agreement with the preliminary report. Dictated by: Dictated on workstation # [id number]
== END 2021-02-26 02:00 | disposition home or self-care (01) ==
LOC: EDUNIT# 22:45 → ER 22:46
DX: K57.32 Diverticulitis of large intestine without perforation or abscess without bleeding (principal); D35.02 Benign neoplasm of left adrenal gland; R00.0 Tachycardia, unspecified; I10 Essential (primary) hypertension; G89.29 Other chronic pain; M54.9 Dorsalgia, unspecified; Z79.891 Long term (current) use of opiate analgesic
CPT/HCPCS: 36415; 74177; 80053; 81000; 83605; 85025; 85610; 85730; 87040; 96361; 96365; 96375; 96376

== ENCOUNTER 2021-07-04 17:37 | Emergency (ER) | payer MEDICARE, MEDICAID ==
[~2021-07-04] VITALS: Ht 182 cm; Wt 136.0 kg
[~2021-07-04 17:37] MED LIST changes: +ACHD5005 PO; +METR500T PO; +ONDA4TAB11 PO
[2021-07-04] MEDS ORDERED: fentaNYL INJ 100 MCG/2 ML AMP IVP STA (18:01)
--- NOTE | 2021-07-04 18:04 | ED Abdominal Pain ---
General Chief Complaint: Abdominal/GI Problems Stated Complaint: SIDE PAIN Nursing Triage Note: Pt ambulatory to ED c/o URQ abd pain that radiates to back. Pt has been seen at [facility] and had labwork and US done, was referred to Dr Spann's office. Source of Information: Patient Exam Limitations: No Limitations (RICARDO VERMA) History of Present Illness Date Seen by Provider: Jul 04, 2021 Time Seen by Provider: 18:05 Initial Comments Patient is a 35-year-old male who presents to the ED with right side abdominal pain. Pain started 1 week ago. Described as sharp worse with any type of movement, laying down. Radiates to his back. No nausea without vomiting. States he had an episode of diarrhea last week that look white. States he went to [facility] and states he had lab work and ultrasound done. He does not know the results. Patient states he had sinus congestion, mild cough before hand. He has been coughing but denies of any shortness of breath. No history of previous abdominal surgery. History of diverticulitis. Normal urination. States he is having difficulty secondary to the pain. Was recommended follow-up with Dr. Spann for further evaluation. Denies headache, dizziness, visual changes. (RICARDO VERMA) Allergies and Home Medications Allergies Coded Allergies: No Known Drug Allergies (Unverified , 11/25/12) Patient Home Medication List Home Medication List Reviewed: Yes (RICARDO VERMA) Acetaminophen (Acetaminophen) 500 Mg Tablet, 1,000 MG PO Q8H PRN for FEVER, (Reported) Entered as Reported by: JOVANI WOLF on 07/24/16 1538 Albuterol Sulfate (Proair Hfa) 1 Puff Puff, 2 PUFF IH Q4H PRN for SHORTNESS OF BREATH, (Reported) Entered as Reported by: JOVANI WOLF on 07/24/16 1534 Budesonide/Formoterol Fumarate (Symbicort 80-4.5 Mcg Inhaler) 10.2 Gm Hfa.aer.ad, 2 PUFF IH BID, (Reported) Entered as Reported by: JOVANI WOLF on 07/24/16 1534 Ciprofloxacin HCl (Ciprofloxacin HCl) 500 Mg Tablet, 500 MG PO BID Prescribed by: JESUS KNUTSON on 07/26/16 1054 Ciprofloxacin HCl (Ciprofloxacin HCl) 500 Mg Tablet, 500 MG PO BID Prescribed by: BRITNEY CAMPBELL on 02/26/21 015 Hydrocodone/Acetaminophen (Hydrocodone-Acetamin 5-325 mg) 1 Each Tablet, 1 TAB PO Q4H PRN for PAIN-MODERATE (5-7) Prescribed by: BRITNEY CAMPBELL on 02/26/21 0152 Hydrocodone/Acetaminophen (Hydrocodone-Acetamin 5-325 mg) 1 Each Tablet, 1 TAB PO Q4H PRN for PAIN-MODERATE (5-7) Prescribed by: RADHA GUILLEN on 02/26/21 1224 Hydrocodone/Acetaminophen (Hydrocodone-Acetamin 5-325 mg) 1 Each Tablet, 1 TAB PO Q4H PRN for PAIN-MODERATE (5-7) Prescribed by: RENE WESTFALL on 07/04/211934 Ibuprofen (Ibuprofen) 800 Mg Tablet, 800 MG PO TID PRN for HEADACHE, (Reported) Entered as Reported by: JOVANI WOLF on 07/24/16 1538 Metronidazole (Metronidazole) 500 Mg Tablet, 500 MG PO TID Prescribed by: JESUS KNUTSON on 07/26/16 105 Metronidazole (Flagyl) 500 Mg Tablet, 500 MG PO TID Prescribed by: BRITNEY CAMPBELL on 02/26/21150 Naproxen (Naproxen) 500 Mg Tablet.dr, 500 MG PO BID Prescribed by: RENE WESTFALL on 07/04/211934 Ondansetron (Ondansetron Odt) 4 Mg Tab.rapdis, 4 MG PO Q6H PRN for NAUSEA/VOMITING Prescribed by: BRITNEY CAMPBELL on 02/26/21150 Oxycodone HCl/Acetaminophen (Percocet 10-325 mg Tablet) 1 Each Tablet, 1 EACH PO Q4H PRN for PAIN Prescribed by: JESUS KNUTSON on 07/26/16 1054 Review of Systems Review of Systems Constitutional: No chills, No diaphoresis, No dizziness, No fever EENTM: No Double Vision, No Ear Drainage, No Ear Pain, No Mouth Pain Respiratory: Denies Cough, Denies SOA With Exertion, Denies SOA at Rest Cardiovascular: Denies Chest Pain Gastrointestinal: Abdominal Pain; Denies Constipated, Denies Diarrhea, Denies Nausea Genitourinary: Denies Burning, Denies Discharge, Denies Drainage, Denies Frequency Musculoskeletal: No back pain, No joint pain Skin: No change in color, No change in hair/nails (RICARDO VERMA) All Other Systems Reviewed Negative Unless Noted: Yes (RICARDO VERMA) Past Wwillqm-Xgoesh-Lhkxbd Hx Patient Social History Tobacco Use?: Yes Tobacco type used: Cigarettes Smoking Status: Current Everyday Smoker Substance use?: No Alcohol Use?: No (RICARDO VERMA) Immunizations Up To Date Tetanus Booster (TDap): Less than 5yrs Influenza Vaccine Up-to-Date: No; Not Current (RICARDO VERMA) Seasonal Allergies Seasonal Allergies: No (RICARDO VERMA) Past Medical History Surgery/Hospitalization HX: HTN HIGH CHOLESTEROL COPD Surgeries: No Respiratory: No Cardiac: No Hypertension Neurological: No Reproductive Disorders: No Genitourinary: No Gastrointestinal: No Musculoskeletal: Yes Degenerate Disk Disease, Chronic Back Pain Endocrine: No HEENT: No Cancer: No Psychosocial: No Integumentary: No (RICARDO VERMA) Family Medical History No Pertinent Family Hx, CAD Under 55 Years Old, Diabetes (RICARDO VERMA) Physical Exam Vital Signs Vital Signs - First Documented 07/04/21 17:48 Temp 36.7 Pulse 110 Resp 17 B/P (MAP) 154/119 (131) Pulse Ox 97 O2 Delivery Room Air (EDGAR ARMSTRONG MD) Vital Signs Capillary Refill : Less Than 3 Seconds (RICARDO VERMA) Height/Weight/BMI Height: 6'0.00" Weight: 265lbs. 0.0oz. 120.701894ll; 41.00 BMI Method:Stated General Appearance: WD/WN, no apparent distress HEENT: PERRL/EOMI, normal ENT inspection, TMs normal, pharynx normal Neck: non-tender, full range of motion, supple, normal inspection Respiratory: chest non-tender, lungs clear, normal breath sounds, no respiratory distress, no accessory muscle use Cardiovascular: regular rate, rhythm, no edema, no gallop, no JVD Gastrointestinal: normal bowel sounds, soft, no organomegaly, tenderness (Right upper quadrant tenderness) Extremities: normal range of motion, non-tender, normal inspection, no pedal edema Back: normal inspection, no CVA tenderness Neurologic/Psychiatric: milk route deliverer II-XII nml as tested, no motor/sensory deficits, alert, normal mood/affect, oriented x 3 (RICARDO VERMA) Progress/Results/Core Measures Results/Orders Lab Results Laboratory Tests Test 07/04/21 18:15 07/04/21 18:20 Range/Units Urine Color YELLOW Urine Clarity CLEAR Urine pH 5.5 5-9 Urine Specific [place] 1.025 H 1.016-1.022 Urine Protein NEGATIVE NEGATIVE Urine Glucose (UA) NEGATIVE NEGATIVE Urine Ketones NEGATIVE NEGATIVE Urine Nitrite NEGATIVE NEGATIVE Urine Bilirubin NEGATIVE NEGATIVE Urine Urobilinogen 0.2 < = 1.0 MG/DL Urine Leukocyte Esterase NEGATIVE NEGATIVE Urine RBC (Auto) NEGATIVE NEGATIVE Urine RBC NONE /HPF Urine WBC NONE /HPF Urine Squamous Epithelial Cells NONE /HPF Urine Crystals NONE /LPF Urine Bacteria NEGATIVE /HPF Urine Casts NONE /LPF Urine Mucus NEGATIVE /LPF Urine Culture Indicated NO White Blood Count 9.4 4.3-11.0 10^3/uL Red Blood Count 4.41 4.30-5.52 10^6/uL Hemoglobin 13.5 13.3-17.7 g/dL Hematocrit 43 40-54 % Mean Corpuscular Volume 98 80-99 fL Mean Corpuscular Hemoglobin 31 25-34 pg Mean Corpuscular Hemoglobin Concent 31 L 32-36 g/dL Red Cell Distribution Width 13.6 10.0-14.5 % Platelet Count 244 130-400 10^3/uL Mean Platelet Volume 10.7 9.0-12.2 fL Immature Granulocyte % (Auto) 1 % Neutrophils (%) (Auto) 72 42-75 % Lymphocytes (%) (Auto) 22 12-44 % Monocytes (%) (Auto) 4 0-12 % Eosinophils (%) (Auto) 1 0-10 % Basophils (%) (Auto) 0 0-10 % Neutrophils # (Auto) 6.8 1.8-7.8 10^3/uL Lymphocytes # (Auto) 2.1 1.0-4.0 10^3/uL Monocytes # (Auto) 0.4 0.0-1.0 10^3/uL Eosinophils # (Auto) 0.1 0.0-0.3 10^3/uL Basophils # (Auto) 0.0 0.0-0.1 10^3/uL Immature Granulocyte # (Auto) 0.1 0.0-0.1 10^3/uL Sodium Level 140 135-145 MMOL/L Potassium Level 4.0 3.6-5.0 MMOL/L Chloride Level 107 98-107 MMOL/L Carbon Dioxide Level 20 L 21-32 MMOL/L Anion Gap 13 5-14 MMOL/L Blood Urea Nitrogen 13 7-18 MG/DL Creatinine 0.85 0.60-1.30 MG/DL Estimat Glomerular Filtration Rate 115 BUN/Creatinine Ratio 15 Glucose Level 109 H 70-105 MG/DL Calcium Level 9.4 8.5-10.1 MG/DL Corrected Calcium 9.5 8.5-10.1 MG/DL Total Bilirubin 0.3 0.1-1.0 MG/DL Aspartate Amino Transf (AST/SGOT) 22 5-34 U/L Alanine Aminotransferase (ALT/SGPT) 37 0-55 U/L Alkaline Phosphatase 52 40-136 U/L Total Protein 7.5 6.4-8.2 GM/DL Albumin 3.9 3.2-4.5 GM/DL Lipase 49 8-78 U/L (EDGAR ARMSTRNOG MD) Vital Signs/I&O 07/04/21 07/04/21 17:48 19:54 Temp 36.7 Pulse 110 90 Resp 17 17 B/P (MAP) 154/119 (131) 155/88 Pulse Ox 97 98 O2 Delivery Room Air Room Air (EDGAR ARMSTRONG MD) Blood Pressure Mean: 131 Departure Communication (Admissions) Patient states symptoms started with runny nose and cough. Patient felt a sharp pain in his right upper quadrant with radiation to the right flank. Worse with deep inspiration, movement. He does have some right upper quadrant tenderness but appears to be more tenderness along the right sided lower ribs. Worse with deep inspiration. Chest x-ray negative for pneumonia. Reports mild cough history of COPD and smoking. Patient afebrile. No vomiting or diarrhea. No associated symptoms with eating. Thought he had white stools on Saturday. That has improved. Normal urination. Normal white blood count, liver enzymes, pancreatic enzymes. CT abdomen pelvis negative for acute abnormality. Patien pain controlled here in the ED. Concerning that this is more likely chest wall. Possible dislodged rib. He scheduled to follow-up with Dr. Spann tomorrow. Recommend that follow-up. Will discharge with pain medication. Further evaluation is needed. Recommend heat pad. He states he gets relief with topical Biofreeze which makes me believes is more chest wall pain. If any worsening symptoms return back to ED for further evaluation. (RICARDO VERMA) Impression Primary Impression: Abdominal pain Disposition: HOME, SELF-CARE Condition: Stable Departure-Patient Inst. Decision time for Depature: 19:33 (RICARDO VERMA) Referrals: [facility] [place] (PCP/Family) Primary Care Physician SHA SPANN DO Patient Instructions: Abdominal Pain, Adult ED Scripts Hydrocodone/Acetaminophen (Hydrocodone-Acetamin 5-325 mg) 1 Each Tablet 1 TAB PO Q4H PRN for PAIN-MODERATE (5-7), #10 TAB Prov: RICARDO VERMA 07/04/21 Naproxen (Naproxen) 500 Mg Tablet.dr 500 MG PO BID, #20 TAB Prov: RICARDO VERMA 07/04/21 ATTENDING PHYSICIAN NOTE: I was physically present as attending physician in the emergency department during the care of this patient, but I was not directly involved in the decision making or delivery of care for this patient. (EDGAR ARMSTRONG MD) RICARDO VERMA Jul 04, 2021 18:04 EDGAR ARMSTRONG MD Jul 06, 2021 03:01
[2021-07-04] MEDS ORDERED: HOLD METFORMIN - RECEIVED CONTRAST 20 ML VIAL IV SCH (18:15)
[2021-07-04] MEDS ORDERED: NS 100 ML (IVPB) BAG IV ONE (18:15)
[2021-07-04] MEDS ORDERED: IOHEXOL 350 MG/ML 100 ML (OMNIPAQUE 350) VIAL IV ONE (18:15)
[2021-07-04 18:20] LABS: BILIRUBIN,URINE NEGATIVE (NEGATIVE); CLARITY,URINE CLEAR; COLOR,URINE YELLOW; GLUCOSE, URINE (UA) NEGATIVE (NEGATIVE); KETONES,URINE NEGATIVE (NEGATIVE); LEUKOCYTE ESTERASE ,URINE NEGATIVE (NEGATIVE); NITRITE,URINE NEGATIVE (NEGATIVE); PH,URINE 5.5 (5-9); PROTEIN,URINE NEGATIVE (NEGATIVE)
[2021-07-04 18:29] LABS: BASOPHILS % (AUTO) 0 % (0-10); EOSINOPHILS # (AUTO) 0.1 10^3/uL (0.0-0.3); EOSINOPHILS % (AUTO) 1 % (0-10); HEMATOCRIT 43 % (40-54); HEMOGLOBIN 13.5 g/dL (13.3-17.7); LYMPHOCYTES # (AUTO) 2.1 10^3/uL (1.0-4.0); LYMPHOCYTES % (AUTO) 22 % (12-44); MEAN CORPUSCULAR HEMOGLOBIN 31 pg (25-34); MEAN CORPUSCULAR HGB CONC 31 g/dL (32-36); MEAN CORPUSCULAR VOLUME 98 fL (80-99); MEAN PLATELET VOLUME 10.7 fL (9.0-12.2); MONOCYTES # (AUTO) 0.4 10^3/uL (0.0-1.0); MONOCYTES % (AUTO) 4 % (0-12); NEUTROPHILS # (AUTO) 6.8 10^3/uL (1.8-7.8); NEUTROPHILS % (AUTO) 72 % (42-75); PLATELET COUNT 244 10^3/uL (130-400); WHITE BLOOD COUNT 9.4 10^3/uL (4.3-11.0)
[2021-07-04 18:44] LABS: BACTERIA,URINE NEGATIVE /HPF
[2021-07-04 18:49] LABS: ALBUMIN 3.9 GM/DL (3.2-4.5)
[2021-07-04 18:50] LABS: CALCIUM 9.4 MG/DL (8.5-10.1)
[2021-07-04 18:52] LABS: TOTAL PROTEIN 7.5 GM/DL (6.4-8.2)
[2021-07-04 18:53] LABS: BILIRUBIN,TOTAL 0.3 MG/DL (0.1-1.0)
[2021-07-04 18:55] LABS: CREATININE SERUM 0.85 MG/DL (0.60-1.30)
--- NOTE | 2021-07-04 18:56 | Diagnostic Imaging Report ---
INDICATION: Cough and abdominal pain PA and lateral chest obtained at 0644 p.m. and compared to 07/24/2016. Heart and mediastinal silhouette are normal in appearance. The lungs are clear. There is no pneumothorax or pleural fluid collection. IMPRESSION: Negative chest. Dictated by: Dictated on workstation # [id number]
--- NOTE | 2021-07-04 19:03 | Diagnostic Imaging Report ---
EXAMINATION: CT abdomen and pelvis with intravenous contrast. TECHNIQUE: Multiple contiguous axial images were obtained through the abdomen and pelvis after the uneventful administration of intravenous contrast. All CT scans use one or more of the following dose optimizing techniques: automated exposure control, MA and/or KvP adjustment based on patient size and exam type or iterative reconstruction. HISTORY: ruq abd pain, right sided abd pain COMPARISON: 02/25/2021 FINDINGS: Lung bases: Bibasilar dependent atelectasis. Solid organs: The liver is normal without focal lesion. The gallbladder is normal. There is no biliary ductal dilation. Pancreas is normal. Spleen is normal. There is redemonstrated 4.4 cm left adrenal mass. The right adrenal gland is unremarkable. The kidneys are normal without hydronephrosis. Bowel: The stomach and small bowel are normal without obstruction. There is scattered colonic diverticulosis. The appendix is normal. Peritoneum: There is no intraperitoneal free fluid or free air. No suspicious lymphadenopathy. Vasculature: Normal without aneurysm. Musculoskeletal: Degenerative changes of the spine without suspicious osseous lesion or compression fracture. Pelvis: The prostate gland is normal. The urinary bladder is normal. IMPRESSION: 1. No acute abnormality in the abdomen or pelvis. 2. Stable 4.4 cm left adrenal adenoma. Dictated by: Dictated on workstation # [id number]
[2021-07-04] MEDS ORDERED: NAPR500T8 PO (19:35)
[2021-07-04] MEDS ORDERED: ACHD5005 PO (19:35)
[2021-07-04] MEDS ORDERED: HYDROcodone/APAP 5 MG/325 MG (LORTAB) TAB PO ONE (19:45)
[2021-07-04 19:54] VITALS: BP 155/88
== END 2021-07-04 19:54 | disposition home or self-care (01) ==
LOC: EDUNIT# 17:37 → ER 17:39
DX: R10.11 Right upper quadrant pain (principal); J44.9 Chronic obstructive pulmonary disease, unspecified; I10 Essential (primary) hypertension; G89.29 Other chronic pain; M54.9 Dorsalgia, unspecified; F17.210 Nicotine dependence, cigarettes, uncomplicated; Z79.891 Long term (current) use of opiate analgesic
CPT/HCPCS: 36415; 71046; 74177; 80053; 81000; 83690; 85025

== ENCOUNTER 2021-08-21 14:54 | Outpatient (CLI) | payer MEDICARE, MEDICAID ==
[~2021-08-21 14:54] MED LIST changes: +NAPR500T8 PO
== END 2021-08-21 15:14 | disposition home or self-care (01) ==
LOC: SLEEP 14:54
PROVIDERS: ATTEND Otolaryngology Otolaryngology/Facial Plastic Surgery
DX: G47.33 Obstructive sleep apnea (adult) (pediatric) (principal); G47.10 Hypersomnia, unspecified
CPT/HCPCS: G0399

== ENCOUNTER 2022-01-03 20:43 | Outpatient (CLI) | payer MEDICARE, MEDICAID | END 2022-01-04 06:15 | disposition home or self-care (01) | LOC: SLEEP 20:43 | PROVIDERS: ATTEND Otolaryngology Otolaryngology/Facial Plastic Surgery | DX: G47.33 Obstructive sleep apnea (adult) (pediatric) (principal) | CPT/HCPCS: 95811 ==

== ENCOUNTER 2022-02-25 16:26 | Emergency (ER) | payer MEDICARE, MEDICAID ==
[~2022-02-25] VITALS: Ht 182.8 cm; Wt 149.6 kg
--- NOTE | 2022-02-25 16:45 | ED Lower Extremity ---
General Chief Complaint: Lower Extremity Stated Complaint: RIGHT FOOT PAIN Nursing Triage Note: PT AMB TO TRIAGE WITH COMPLAINT OF RIGHT FOOT INJURY. STATES WAS HANGING A PICTURE AND FELL OFF THE BED AND LANDED ON RIGHT FOOT. STATES CANT MOVE OUTER TOES. Source: patient Exam Limitations: no limitations History of Present Illness Date Seen by Provider: Feb 25, 2022 Time Seen by Provider: 16:32 Initial Comments 36-year-old male presents for right foot pain. He was hanging something on the wall and stepped backwards off a ladder and twisted his foot. He has pain to the base of his third and fourth toes. No other injury. He has been able to bear weight with significant pain. He is ambulating with a cane which she does not usually have to do. Pain is dull throbbing worse with weightbearing without radiation. No alleviating factors. Moderate in intensity. Allergies and Home Medications Allergies Coded Allergies: No Known Drug Allergies (Unverified , 11/25/12) Patient Home Medication List Home Medication List Reviewed: Yes Acetaminophen (Acetaminophen) 500 Mg Tablet, 1,000 MG PO Q8H PRN for FEVER, (Reported) Entered as Reported by: JOVANI WOLF on 07/24/16 1538 Albuterol Sulfate (Proair Hfa) 1 Puff Puff, 2 PUFF IH Q4H PRN for SHORTNESS OF BREATH, (Reported) Entered as Reported by: JOVANI WOLF on 07/24/16 1534 Budesonide/Formoterol Fumarate (Symbicort 80-4.5 Mcg Inhaler) 10.2 Gm Hfa.aer.ad, 2 PUFF IH BID, (Reported) Entered as Reported by: JOVANI WOLF on 07/24/16 1534 Ciprofloxacin HCl (Ciprofloxacin HCl) 500 Mg Tablet, 500 MG PO BID Prescribed by: JESUS KNUTSON on 07/26/16 1054 Ciprofloxacin HCl (Ciprofloxacin HCl) 500 Mg Tablet, 500 MG PO BID Prescribed by: BRITNEY CAMPBELL on 02/26/21 0151 Hydrocodone Bit/Acetaminophen (HYDROcodone/APAP 5 MG/325 MG TAB) 1 Tab Tab, 1 TAB PO Q6H Prescribed by: SHITAL GRAY MD on 02/25/22 1657 Hydrocodone/Acetaminophen (Hydrocodone-Acetamin 5-325 mg) 1 Each Tablet, 1 TAB PO Q4H PRN for PAIN-MODERATE (5-7) Prescribed by: BRITNEY CAMPBELL on 02/26/21 015 Hydrocodone/Acetaminophen (Hydrocodone-Acetamin 5-325 mg) 1 Each Tablet, 1 TAB PO Q4H PRN for PAIN-MODERATE (5-7) Prescribed by: RADHA GUILLEN on 02/26/21 1224 Hydrocodone/Acetaminophen (Hydrocodone-Acetamin 5-325 mg) 1 Each Tablet, 1 TAB PO Q4H PRN for PAIN-MODERATE (5-7) Prescribed by: RENE WESTFALL on 07/04/21 193 Ibuprofen (Ibuprofen) 800 Mg Tablet, 800 MG PO TID PRN for HEADACHE, (Reported) Entered as Reported by: JOVANI WOLF on 07/24/16 1538 Metronidazole (Metronidazole) 500 Mg Tablet, 500 MG PO TID Prescribed by: JESUS KNUTSON on 07/26/16 105 Metronidazole (Flagyl) 500 Mg Tablet, 500 MG PO TID Prescribed by: BRITNEY CAMPBELL on 02/26/21150 Naproxen (Naproxen) 500 Mg Tablet.dr, 500 MG PO BID Prescribed by: RENE WESTFALL on 07/04/211934 Ondansetron (Ondansetron Odt) 4 Mg Tab.rapdis, 4 MG PO Q6H PRN for NAUSEA/VOMITING Prescribed by: BRITNEY CAMPBELL on 02/26/21 015 Oxycodone HCl/Acetaminophen (Percocet 10-325 mg Tablet) 1 Each Tablet, 1 EACH PO Q4H PRN for PAIN Prescribed by: JESUS KNUTSON on 07/26/16 1054 Review of Systems Constitutional: no symptoms reported EENTM: no symptoms reported Respiratory: no symptoms reported Cardiovascular: no symptoms reported Gastrointestinal: no symptoms reported Genitourinary: no symptoms reported Musculoskeletal: other (Right foot pain) Past Tkqgsll-Kkkrzo-Foscaf Hx Patient Social History Tobacco Use?: Yes Tobacco type used: Cigarettes Smoking Status: Current Everyday Smoker Use of E-Cig and/or Vaping dev: No Substance use?: No Alcohol Use?: Yes Alcohol Frequency: Once in a while Pt feels they are or have been: No Immunizations Up To Date Tetanus Booster (TDap): Less than 5yrs Seasonal Allergies Seasonal Allergies: No Past Medical History Surgery/Hospitalization HX: HTN HIGH CHOLESTEROL COPD Surgeries: No Respiratory: No Cardiac: No Hypertension Neurological: No Reproductive Disorders: No Genitourinary: No Gastrointestinal: No Musculoskeletal: Yes Degenerate Disk Disease, Chronic Back Pain Endocrine: No HEENT: No Cancer: No Psychosocial: No Integumentary: No Family Medical History Reviewed Nursing Family Hx No Pertinent Family Hx, CAD Under 55 Years Old, Diabetes Physical Exam Vital Signs Vital Signs - First Documented 02/25/22 16:31 Pulse 113 Resp 20 B/P (MAP) 104/59 (74) Pulse Ox 96 O2 Delivery Room Air Capillary Refill : Height, Weight, BMI Height: 6'0.00" Weight: 265lbs. 0.0oz. 120.337489ay; 44.00 BMI Method:Stated General Appearance: WD/WN, no apparent distress HEENT: normal ENT inspection, pharynx normal Neck: non-tender, supple, normal inspection Cardiovascular: regular rate, rhythm, no edema, no gallop, no JVD, no murmur Respiratory: chest non-tender, lungs clear, normal breath sounds, no respiratory distress, no accessory muscle use Gastrointestinal: normal bowel sounds, non tender, soft, no organomegaly, no pulsatile mass Back: normal inspection, no CVA tenderness, no vertebral tenderness Hips: bilateral hip non-tender, bilateral hip normal inspection, bilateral hip normal range of motion Legs: bilateral leg non-tender, bilateral leg normal inspection, bilateral leg normal range of motion Knees: bilateral knee non-tender, bilateral knee normal inspection, bilateral knee normal range of motion Ankles: bilateral ankle non-tender, bilateral ankle normal inspection, bilateral ankle normal range of motion Feet: left foot non-tender, left foot normal inspection, left foot normal range of motion; right foot other (Skin is dry. There is tenderness palpation the base of the third and fourth toes. No obvious deformity or swelling. Neurovascular motor and sensory intact.) Neurologic/Psychiatric: alert, normal mood/affect, oriented x 3 Skin: normal color, warm/dry Progress/Results/Core Measures Results/Orders My Orders Orders - SHITLA GRAY DO Foot, Right, 3 View (02/25/22 16:41) Vital Signs/I&O 02/25/22 02/25/22 16:31 17:20 Pulse 113 113 Resp 20 20 B/P (MAP) 104/59 (74) 104/59 Pulse Ox 96 96 O2 Delivery Room Air Room Air Blood Pressure Mean: 74 Departure Communication (Admissions) Patient placed in a posterior short leg splint. Neurovascular motor and sensory intact. Discharged orthopedic follow-up, pain control ice and elevation. Impression Primary Impression: Fracture of fifth metatarsal bone Qualified Codes: S92.351A - Displaced fracture of fifth metatarsal bone, ri ght foot, initial encounter for closed fracture Disposition: HOME, SELF-CARE Condition: Stable Departure-Patient Inst. Referrals: [facility] [place] (PCP/Family) Primary Care Physician CHATA ARMSTRONG MD Patient Instructions: Foot Fracture (DC) Add. Discharge Instructions: Keep the splint clean and dry. Take the pain medication as needed for pain. Do not drive or make important decisions while taking it is a little drowsy. Follow-up with the orthopedic surgeon by calling to schedule an appointment. Return to the emergency department for any severe concerns. Use the crutches so not to bear weight on your foot. All discharge instructions reviewed with patient and/or family. Voiced understanding. Scripts Hydrocodone Bit/Acetaminophen (HYDROcodone/APAP 5 MG/325 MG TAB) 1 Tab Tab 1 TAB PO Q6H for Pain for 3 Days, #12 TAB Prov: SHITAL GRAY DO 02/25/22 SHITAL GRAY DO Feb 25, 2022 16:44
[2022-02-25] MEDS ORDERED: ACHD5005 PO (16:57)
--- NOTE | 2022-02-25 17:05 | Diagnostic Imaging Report ---
EXAMINATION: Right foot 3 views. HISTORY: Right foot pain. COMPARISON: None available. FINDINGS: There is an oblique fracture of the right fifth metatarsal. There is mild displacement. There is a fracture of the lateral aspect of the cuboid. Joint spaces are normal. IMPRESSION: 1. Oblique fracture of the right fifth metatarsal. 2. Fracture of the lateral aspect of the cuboid. Dictated by: Dictated on workstation # [id number]
[2022-02-25 17:20] VITALS: BP 104/59
== END 2022-02-25 17:23 | disposition home or self-care (01) ==
LOC: EDUNIT# 16:26 → ER 16:28
DX: S92.351A Displaced fracture of fifth metatarsal bone, right foot, initial encounter for closed fracture (principal); F17.210 Nicotine dependence, cigarettes, uncomplicated; X50.1XXA Overexertion from prolonged static or awkward postures, initial encounter
CPT/HCPCS: 29515; 73630

== ENCOUNTER → 2022-03-01 | Outpatient (CLI) | payer MEDICARE, MEDICAID | LOC: ORTHO 15:30 | PROVIDERS: ATTEND Orthopaedic Surgery | DX: S92.351A Displaced fracture of fifth metatarsal bone, right foot, initial encounter for closed fracture (principal); X58.XXXA Exposure to other specified factors, initial encounter | CPT/HCPCS: 99203 ==

== ENCOUNTER → 2022-03-15 | Outpatient (CLI) | payer MEDICARE, MEDICAID ==
--- NOTE | 2022-03-15 17:22 | Diagnostic Imaging Report ---
INDICATION: Right foot fracture followup. AP, oblique, and lateral views of the right foot are obtained and compared to 02/25/2022. Oblique fracture distal aspect of 5th metatarsal is again noted and shows mildly improved alignment compared to the prior study. There is no other fracture identified. There is no significant callus formation yet visualized. IMPRESSION: Oblique fracture 5th metatarsal with improved alignment compared to the previous study. No new abnormality otherwise seen. Dictated by: Dictated on workstation # [id number]
== END ==
LOC: ORTHO 14:41
PROVIDERS: ATTEND Orthopaedic Surgery
DX: Z47.89 Encounter for other orthopedic aftercare (principal); S92.351A Displaced fracture of fifth metatarsal bone, right foot, initial encounter for closed fracture; X58.XXXA Exposure to other specified factors, initial encounter
CPT/HCPCS: 73630; G0463; 99213

== ENCOUNTER → 2022-04-17 | Outpatient (CLI) | payer MEDICARE, MEDICAID ==
[~2022-04-17] MED LIST changes: +ALBU8.5H6; +ALBU8.5H6 IH; -RT-ALBUINH; -RT-ALBUINH IH
--- NOTE | 2022-04-17 16:14 | Diagnostic Imaging Report ---
INDICATION: Right foot fracture, follow-up. TECHNIQUE: 3 views of the right foot CORRELATION STUDY: 02/25/2022, 03/15/2022 FINDINGS: Displaced, obliquely oriented fracture of the mid to distal 5th metatarsal shaft. Dorsal displacement of approximately 3 mm. There is some suggestion of reparative change with mild callus formation. However, the fracture line remains well-visualized and patent. No new bony abnormality. There is some progressive demineralization at the 5th metatarsal head. Soft tissue swelling along the lateral aspect of the foot persists. IMPRESSION: 1. Very little interval healing of the displaced and obliquely oriented fracture of the 5th metatarsal. There is some developing and/or progressive bony demineralization of its distal component along the 5th metatarsal head. Dictated by: Dictated on workstation # [id number]
== END ==
LOC: ORTHO 14:30
PROVIDERS: ATTEND Orthopaedic Surgery
DX: Z47.89 Encounter for other orthopedic aftercare (principal); S92.351D Displaced fracture of fifth metatarsal bone, right foot, subsequent encounter for fracture with routine healing; X58.XXXD Exposure to other specified factors, subsequent encounter
CPT/HCPCS: 73630; G0463; 99213

== ENCOUNTER → 2022-05-25 | Outpatient (CLI) | payer MEDICARE, MEDICAID ==
--- NOTE | 2022-05-25 13:37 | Diagnostic Imaging Report ---
INDICATION: Followup fracture. COMPARISON: 04/17/2022 FINDINGS: Multiple radiographic views of the right foot were obtained. Again identified is nonacute oblique oriented fracture of the distal 5th metatarsal. Since the previous exam, there has been interval progression of partially bridging callus formation consistent with partial interval healing. Fracture fragments are in stable alignment. No new acute osseous abnormality is seen. Joint spaces are maintained. Known expectorated. Foreign bodies are identified. IMPRESSION: 1. Redemonstration partially healed fracture of the right 5th metatarsal. Dictated by: Dictated on workstation # [id number]
== END ==
LOC: ORTHO 12:57
PROVIDERS: ATTEND Orthopaedic Surgery
DX: S92.351D Displaced fracture of fifth metatarsal bone, right foot, subsequent encounter for fracture with routine healing (principal); X58.XXXD Exposure to other specified factors, subsequent encounter
CPT/HCPCS: 73630; 99213

== ENCOUNTER 2022-07-04 02:04 | Emergency (ER) | payer MEDICARE, MEDICAID ==
[~2022-07-04] VITALS: Ht 183 cm; Wt 140.0 kg
[2022-07-04 02:10] VITALS: BP 108/60
[2022-07-04] MEDS ORDERED: PANTOPRAZOLE 40 MG (PROTONIX) VIAL IV ONE (03:30)
[2022-07-04] MEDS ORDERED: LACTATED RINGERS 1,000 ML IV ONE (03:45)
[2022-07-04] MEDS ORDERED: ONDA4TAB11 SL (03:52)
[2022-07-04] MEDS ORDERED: FAMO-119 PO (03:52)
--- NOTE | 2022-07-04 03:53 | ED General ---
General Chief Complaint: Cardiac/General Problems Stated Complaint: LOW BLOOD PRESSURE Source of Information: Patient Exam Limitations: No Limitations History of Present Illness Date Seen by Provider: Jul 04, 2022 Time Seen by Provider: 02:10 Initial Comments This 36-year-old gentleman presents to the emergency room with complaints of vomiting and epigastric pain for a few days. He then developed lightheadedness and noted his systolic blood pressure dropping into the 80s and 90s. He presently takes lisinopril with hydrochlorothiazide and amlodipine. His last doses of these medications were yesterday morning. He has had some diarrhea recently as well. He had gastric sleeve surgery on June 04 and had been recovering well until the last couple of days. He has lost about 25 pounds since the surgery. Diarrhea has resolved but he is still nauseated. Allergies and Home Medications Allergies Coded Allergies: No Known Drug Allergies (Unverified , 11/25/12) Patient Home Medication List Home Medication List Reviewed: Yes Acetaminophen (Acetaminophen) 500 Mg Tablet, 1,000 MG PO Q8H PRN for FEVER, (Rep orted) Entered as Reported by: JOVANI WOLF on 07/24/16 1538 Albuterol Sulfate (Ventolin Hfa) 1 Puff Puff, 2 PUFF IH Q4H PRN for SHORTNESS OF BREATH, (Reported) Entered as Reported by: JOVANI WOLF on 07/24/16 1534 Budesonide/Formoterol Fumarate (Symbicort 80-4.5 Mcg Inhaler) 10.2 Gm Hfa.aer.ad, 2 PUFF IH BID, (Reported) Entered as Reported by: JOVANI WOLF on 07/24/16 1534 Ciprofloxacin HCl (Ciprofloxacin HCl) 500 Mg Tablet, 500 MG PO BID Prescribed by: JESUS KNUTSON on 07/26/16 1054 Ciprofloxacin HCl (Ciprofloxacin HCl) 500 Mg Tablet, 500 MG PO BID Prescribed by: BRITNEY CAMPBELL on 02/26/21 0151 Famotidine (Pepcid) 20 Mg Tablet, 20 MG PO BID Prescribed by: EDGAR GALVAN on 07/04/22 0352 Hydrocodone Bit/Acetaminophen (HYDROcodone/APAP 5 MG/325 MG TAB) 1 Tab Tab, 1 TAB PO Q6H Prescribed by: SHITAL GRAY MD on 02/25/22 1657 Hydrocodone/Acetaminophen (Hydrocodone-Acetamin 5-325 mg) 1 Each Tablet, 1 TAB P O Q4H PRN for PAIN-MODERATE (5-7) Prescribed by: BRITNEY CAMPBELL on 02/26/21 015 Hydrocodone/Acetaminophen (Hydrocodone-Acetamin 5-325 mg) 1 Each Tablet, 1 TAB PO Q4H PRN for PAIN-MODERATE (5-7) Prescribed by: RADHA GUILLEN on 02/26/21 1224 Hydrocodone/Acetaminophen (Hydrocodone-Acetamin 5-325 mg) 1 Each Tablet, 1 TAB PO Q4H PRN for PAIN-MODERATE (5-7) Prescribed by: RENE WESTFALL on 07/04/211934 Ibuprofen (Ibuprofen) 800 Mg Tablet, 800 MG PO TID PRN for HEADACHE, (Reported) Entered as Reported by: JOVANI WOLF on 07/24/16 1538 Metronidazole (Metronidazole) 500 Mg Tablet, 500 MG PO TID Prescribed by: JESUS KNUTSON on 07/26/16 105 Metronidazole (Flagyl) 500 Mg Tablet, 500 MG PO TID Prescribed by: BRITNEY CAMPBELL on 02/26/21150 Naproxen (Naproxen) 500 Mg Tablet.dr, 500 MG PO BID Prescribed by: RENE WESTFALL on 07/04/211934 Ondansetron (Ondansetron Odt) 4 Mg Tab.rapdis, 4 MG PO Q6H PRN for NAUSEA/VOMITING Prescribed by: BRITNEY CAMPBELL on 02/26/21150 Ondansetron (Ondansetron Odt) 4 Mg Tab.rapdis, 4 MG SL Q4H PRN for NAUSEA/VOMITING Prescribed by: EDGAR GALVAN on 07/04/22 0352 Oxycodone HCl/Acetaminophen (Percocet 10-325 mg Tablet) 1 Each Tablet, 1 EACH PO Q4H PRN for PAIN Prescribed by: JESUS KNUTSON on 07/26/16 1054 Review of Systems Review of Systems Constitutional: no symptoms reported EENTM: no symptoms reported Respiratory: no symptoms reported Cardiovascular: see HPI Gastrointestinal: see HPI Genitourinary: no symptoms reported Musculoskeletal: no symptoms reported Skin: no symptoms reported Psychiatric/Neurological: No Symptoms Reported Hematologic/Lymphatic: No Symptoms Reported Immunological/Allergic: no symptoms reported Past Kfewopm-Utdcuw-Fottlu Hx Patient Social History Tobacco Use?: No Use of E-Cig and/or Vaping dev: No Substance use?: No Alcohol Use?: No Immunizations Up To Date Tetanus Booster (TDap): Less than 5yrs Seasonal Allergies Seasonal Allergies: No Past Medical History Surgery/Hospitalization HX: HTN HIGH CHOLESTEROL COPD Surgeries: Yes Abdominal (Gastric sleeve) Respiratory: Yes COPD Cardiac: Yes Hypertension Neurological: No Reproductive Disorders: No Genitourinary: No Gastrointestinal: Yes Diverticulosis (History of diverticulitis) Musculoskeletal: Yes Degenerate Disk Disease, Chronic Back Pain Endocrine: No HEENT: No Cancer: No Psychosocial: No Integumentary: No Family Medical History No Pertinent Family Hx, CAD Under 55 Years Old, Diabetes Physical Exam Vital Signs Vital Signs - First Documented 07/04/22 02:10 Temp 35.9 Pulse 92 Resp 20 B/P (MAP) 108/60 (76) Pulse Ox 98 Capillary Refill : Height, Weight, BMI Height: 6'0.00" Weight: 265lbs. 0.0oz. 120.961863hs; 44.00 BMI Method:Stated General Appearance: No Apparent Distress, WD/WN, Obese HEENT: Normal ENT Inspection Neck: Normal Inspection Respiratory: Lungs Clear, Normal Breath Sounds, No Accessory Muscle Use Cardiovascular: Regular Rate, Rhythm, No Edema, No Murmur Gastrointestinal: Normal Bowel Sounds, Soft; No Distended; Tenderness (Epigastrium) Extremity: Normal Inspection, No Pedal Edema Neurologic/Psychiatric: Alert, Oriented x3, No Motor/Sensory Deficits, Normal Mood/Affect Skin: Normal Color, Warm/Dry Progress/Results/Core Measures Suspected Sepsis SIRS Temperature: Pulse: Respiratory Rate: Laboratory Tests 07/04/22 02:27: White Blood Count 11.8H Blood Pressure / Mean: Laboratory Tests 07/04/22 02:27: Creatinine 1.39H, Platelet Count 235, Total Bilirubin 0.4 Results/Orders Lab Results Laboratory Tests Test 07/04/22 02:27 Range/Units White Blood Count 11.8 H 4.3-11.0 10^3/uL Red Blood Count 4.47 4.30-5.52 10^6/uL Hemoglobin 14.1 13.3-17.7 g/dL Hematocrit 43 40-54 % Mean Corpuscular Volume 96 80-99 fL Mean Corpuscular Hemoglobin 32 25-34 pg Mean Corpuscular Hemoglobin Concent 33 32-36 g/dL Red Cell Distribution Width 13.9 10.0-14.5 % Platelet Count 235 130-400 10^3/uL Mean Platelet Volume 12.4 H 9.0-12.2 fL Immature Granulocyte % (Auto) 0 % Neutrophils (%) (Auto) 67 42-75 % Lymphocytes (%) (Auto) 27 12-44 % Monocytes (%) (Auto) 5 0-12 % Eosinophils (%) (Auto) 1 0-10 % Basophils (%) (Auto) 0 0-10 % Neutrophils # (Auto) 7.9 H 1.8-7.8 10^3/uL Lymphocytes # (Auto) 3.1 1.0-4.0 10^3/uL Monocytes # (Auto) 0.6 0.0-1.0 10^3/uL Eosinophils # (Auto) 0.1 0.0-0.3 10^3/uL Basophils # (Auto) 0.0 0.0-0.1 10^3/uL Immature Granulocyte # (Auto) 0.1 0.0-0.1 10^3/uL Percent Immature Platelet Fraction 11.0 H 0.0-7.6 % Sodium Level 138 135-145 MMOL/L Potassium Level 3.3 L 3.6-5.0 MMOL/L Chloride Level 101 98-107 MMOL/L Carbon Dioxide Level 21 21-32 MMOL/L Anion Gap 16 H 5-14 MMOL/L Blood Urea Nitrogen 11 7-18 MG/DL Creatinine 1.39 H 0.60-1.30 MG/DL Estimat Glomerular Filtration Rate 67 BUN/Creatinine Ratio 8 Glucose Level 94 70-105 MG/DL Calcium Level 9.8 8.5-10.1 MG/DL Corrected Calcium 9.7 8.5-10.1 MG/DL Magnesium Level 1.8 1.6-2.4 MG/DL Total Bilirubin 0.4 0.1-1.0 MG/DL Aspartate Amino Transf (AST/SGOT) 25 5-34 U/L Alanine Aminotransferase (ALT/SGPT) 47 0-55 U/L Alkaline Phosphatase 68 40-136 U/L Total Protein 7.9 6.4-8.2 GM/DL Albumin 4.1 3.2-4.5 GM/DL Lipase 96 H 8-78 U/L Smear Scan YES My Orders Orders - EDGAR ARMSTRONG MD Pantoprazole Injection (Protonix Injecti (07/04/22 03:30) Lipase (07/04/22 03:20) Lactated Ringers (Lr 1000 Ml Iv Solution (07/04/22 03:45) Cbc With Automated Diff (07/04/22 02:27) Comprehensive Metabolic Panel (07/04/22 02:27) Magnesium (07/04/22 02:27) Medications Given in ED Current Medications Medications Dose Ordered Sig/Feliciano Route Start Time Stop Time Status Last Admin Dose Admin Lactated Ringer's 1,000 ml @ 0 mls/hr Q0M ONCE IV 07/04/22 03:45 07/04/22 03:46 DC 07/04/22 03:45 0 MLS/HR Pantoprazole 40 mg ONCE ONCE IV 07/04/22 03:30 07/04/22 03:31 DC 07/04/22 03:43 40 MG Vital Signs/I&O 07/04/22 02:10 Temp 35.9 Pulse 92 Resp 20 B/P (MAP) 108/60 (76) Pulse Ox 98 Capillary Refill : Progress Note : Progress Note Patient received 2 L of IV fluid. Labs including CBC, CMP, and lipase were unremarkable. Blood pressure normalized and was stable. He was treated with Zofran and Protonix for GI symptoms. See discharge instructions for further discussion and prescriptions. He was advised to stop lisinopril and hydrochlorothiazide and amlodipine. He was given parameters to restart amlodipine if needed. With his weight loss he may not need to be on blood pressure medications any longer. Departure Impression Primary Impression: Nausea & vomiting Qualified Codes: R11.2 - Nausea with vomiting, unspecified Additional Impressions: Hypotension Qualified Codes: I95.2 - Hypotension due to drugs Hypovolemia Epigastric pain Disposition: 01 HOME, SELF-CARE Condition: Improved Departure-Patient Inst. Decision time for Depature: 03:49 Referrals: [facility] (PCP/Family) Primary Care Physician Patient Instructions: Abdominal Pain, Adult ED, Care After Weight Loss Surgery Add. Discharge Instructions: Start with a noncarbonated clear liquid diet and gradually advance your diet with small quantities of bland food as tolerated. Stop both lisinopril/HCTZ and amlodipine. If you develop consistent hypertension greater than 140 systolic or 90 diastolic, restart the amlodipine. Take Pepcid (famotidine) 20 mg twice daily until otherwise instructed by your doctor. Use Zofran (ondansetron) as prescribed for nausea and vomiting. Return to care if you have worsening symptoms despite following these instructions. All discharge instructions reviewed with patient and/or family. Voiced understanding. Scripts Famotidine (Pepcid) 20 Mg Tablet 20 MG PO BID, #60 TAB Prov: EDGAR ARMSTRONG MD 07/04/22 Ondansetron (Ondansetron Odt) 4 Mg Tab.rapdis 4 MG SL Q4H PRN for NAUSEA/VOMITING, #10 TAB Prov: EDGAR ARMSTRONG MD 07/04/22 Copy Copies To 1: [facility]/EDGAR HOROWITZ MD Jul 04, 2022 03:52
[2022-07-04 04:47] LABS: BASOPHILS % (AUTO) 0 % (0-10); BILIRUBIN,TOTAL 0.4 MG/DL (0.1-1.0); CALCIUM 9.8 MG/DL (8.5-10.1); CREATININE SERUM 1.39 MG/DL (0.60-1.30); EOSINOPHILS # (AUTO) 0.1 10^3/uL (0.0-0.3); EOSINOPHILS % (AUTO) 1 % (0-10); HEMATOCRIT 43 % (40-54); HEMOGLOBIN 14.1 g/dL (13.3-17.7); LYMPHOCYTES # (AUTO) 3.1 10^3/uL (1.0-4.0); LYMPHOCYTES % (AUTO) 27 % (12-44); MAGNESIUM 1.8 MG/DL (1.6-2.4); MEAN CORPUSCULAR HEMOGLOBIN 32 pg (25-34); MEAN CORPUSCULAR HGB CONC 33 g/dL (32-36); MEAN CORPUSCULAR VOLUME 96 fL (80-99); MEAN PLATELET VOLUME 12.4 fL (9.0-12.2); MONOCYTES # (AUTO) 0.6 10^3/uL (0.0-1.0); MONOCYTES % (AUTO) 5 % (0-12); NEUTROPHILS # (AUTO) 7.9 10^3/uL (1.8-7.8); NEUTROPHILS % (AUTO) 67 % (42-75); PLATELET COUNT 235 10^3/uL (130-400); POTASSIUM 3.3 MMOL/L (3.6-5.0); SMEAR SCAN COMMENT YES; TOTAL PROTEIN 7.9 GM/DL (6.4-8.2); WHITE BLOOD COUNT 11.8 10^3/uL (4.3-11.0)
[2022-07-04 04:48] LABS: ALBUMIN 4.1 GM/DL (3.2-4.5)
== END 2022-07-04 04:32 | disposition home or self-care (01) ==
LOC: EDUNIT# 02:04 → ER 02:07
DX: R11.2 Nausea with vomiting, unspecified (principal); R10.13 Epigastric pain; I95.9 Hypotension, unspecified; E86.1 Hypovolemia; I10 Essential (primary) hypertension; Z79.83 Long term (current) use of bisphosphonates; Z79.899 Other long term (current) drug therapy; Z28.310 Unvaccinated for COVID-19
CPT/HCPCS: 36415; 80053; 83690; 83735; 85025; 99281

== ENCOUNTER → 2022-07-05 | Outpatient (CLI) | payer MEDICARE, MEDICAID ==
[~2022-07-05] MED LIST changes: +FAMO-119 PO; +ONDA4TAB11 SL
--- NOTE | 2022-07-05 16:52 | Diagnostic Imaging Report ---
INDICATION: Followup fracture. EXAMINATION: Right foot 07/05/2022 COMPARISON: 05/25/2022 FINDINGS: 3 views of the foot. Again noted is a slightly displaced fracture of the distal one third of the 5th metatarsal. Bridging callus formation has increased since previous imaging. There is incomplete healing noted. No new fractures identified. No dislocations. Degenerative findings seen at the 1st metatarsophalangeal joint. IMPRESSION: 1. Continued healing changes at the 5th metatarsal fracture. Dictated by: Dictated on workstation # [id number]
== END ==
LOC: ORTHO 13:10
PROVIDERS: ATTEND Orthopaedic Surgery
DX: Z47.89 Encounter for other orthopedic aftercare (principal); S92.351D Displaced fracture of fifth metatarsal bone, right foot, subsequent encounter for fracture with routine healing; X58.XXXD Exposure to other specified factors, subsequent encounter
CPT/HCPCS: 73630; 99213

== ENCOUNTER → 2022-07-17 | Outpatient (CLI) | payer MEDICARE, MEDICAID ==
--- NOTE | 2022-07-17 19:33 | Diagnostic Imaging Report ---
INDICATION: Intermittent claudication. Ankle-brachial index. FINDINGS: Pressures were recorded in both brachial arteries and in the posterior tibial and dorsalis pedis arteries at the ankles. The ankle-brachial index on the right is 1.08. The ankle-brachial index on the left is 0.96. IMPRESSION: Ankle-brachial indices do not suggest any hemodynamically significant stenosis. Dictated by: Dictated on workstation # [id number]
== END ==
LOC: RAD 14:59
PROVIDERS: ATTEND Nurse Practitioner Family
DX: I73.9 Peripheral vascular disease, unspecified (principal)
CPT/HCPCS: 93922

== ENCOUNTER → 2022-10-31 | Outpatient (CLI) | payer MEDICARE, MEDICAID | LOC: CARD 14:15 | PROVIDERS: ATTEND Pediatrics | DX: R00.0 Tachycardia, unspecified (principal); I10 Essential (primary) hypertension | CPT/HCPCS: 93306 ==

== ENCOUNTER 2023-01-08 09:15 | Emergency (ER) | payer MEDICARE, MEDICAID ==
[~2023-01-08] VITALS: Ht 182 cm; Wt 120.0 kg
--- NOTE | 2023-01-08 10:53 | ED Abdominal Pain ---
General Chief Complaint: Abdominal/GI Problems Stated Complaint: LT SIDE PAIN Nursing Triage Note: pt states left sided pain has come and gone for the last two weeks and today it got worse Source of Information: Patient Exam Limitations: No Limitations History of Present Illness Date Seen by Provider: Jan 08, 2023 Time Seen by Provider: 10:52 Initial Comments Patient Is a 37-year-old male who presents ED with left flank pain. 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 Pain is described as throbbing and constant. He has episodes of increasing pain. Appear to be worse with any type of movement. Patient states he has been taken Tylenol, ibuprofen and Icy Hot without much improvement. Denies of any pain with urination frequent urination hematuria, abdominal pain, vomiting, diarrhea or specific injury. No chest pain or shortness of breath. Seems to be worse with any type of movement. No history of similar type pain in the past. Allergies and Home Medications Allergies Coded Allergies: No Known Drug Allergies (Unverified , 11/25/12) Patient Home Medication List Home Medication List Reviewed: Yes Acetaminophen (Acetaminophen) 500 Mg Tablet, 1,000 MG PO Q8H PRN for FEVER, (Reported) Entered as Reported by: JOVANI WOLF on 07/24/16 1538 Albuterol Sulfate (Ventolin Hfa) 1 Puff Puff, 2 PUFF IH Q4H PRN for SHORTNESS OF BREATH, (Reported) Entered as Reported by: JOVANI WOLF on 07/24/16 1534 Budesonide/Formoterol Fumarate (Symbicort 80-4.5 Mcg Inhaler) 10.2 Gm Hfa.aer.ad, 2 PUFF IH BID, (Reported) Entered as Reported by: JOVANI WOLF on 07/24/16 1534 Ciprofloxacin HCl (Ciprofloxacin HCl) 500 Mg Tablet, 500 MG PO BID Prescribed by: JESUS KNUTSON on 07/26/16 1054 Ciprofloxacin HCl (Ciprofloxacin HCl) 500 Mg Tablet, 500 MG PO BID Prescribed by: BRITNEY CAMPBELL on 02/26/21 0151 Cyclobenzaprine HCl (Cyclobenzaprine HCl) 10 Mg Tablet, 10 MG PO TID Prescribed by: RENE WESTFALL on 01/08/23 1222 Famotidine (Pepcid) 20 Mg Tablet, 20 MG PO BID Prescribed by: EDGAR GALVAN on 07/04/22 035 Hydrocodone Bit/Acetaminophen (HYDROcodone/APAP 5 MG/325 MG TAB) 1 Tab Tab, 1 TAB PO Q6H Prescribed by: SHITAL GRAY MD on 02/25/22 1657 Hydrocodone/Acetaminophen (Hydrocodone-Acetamin 5-325 mg) 1 Each Tablet, 1 TAB PO Q4H PRN for PAIN-MODERATE (5-7) Prescribed by: BRITNEY CAMPBELL on 02/26/21 015 Hydrocodone/Acetaminophen (Hydrocodone-Acetamin 5-325 mg) 1 Each Tablet, 1 TAB PO Q4H PRN for PAIN-MODERATE (5-7) Prescribed by: RADHA GUILLEN on 02/26/21 1224 Hydrocodone/Acetaminophen (Hydrocodone-Acetamin 5-325 mg) 1 Each Tablet, 1 TAB PO Q4H PRN for PAIN-MODERATE (5-7) Prescribed by: RENE WESTFALL on 07/04/211934 Ibuprofen (Ibuprofen) 800 Mg Tablet, 800 MG PO TID PRN for HEADACHE, (Reported) Entered as Reported by: JOVANI WOLF on 07/24/16 1538 Ketorolac Tromethamine (Ketorolac Tromethamine) 10 Mg Tablet, 10 MG PO TID Prescribed by: RENE WESTFALL on 01/08/23 1222 Metronidazole (Metronidazole) 500 Mg Tablet, 500 MG PO TID Prescribed by: JESUS KNUTSON on 07/26/16 1054 Metronidazole (Flagyl) 500 Mg Tablet, 500 MG PO TID Prescribed by: BRITNEY CAMPBELL on 02/26/21150 Naproxen (Naproxen) 500 Mg Tablet.dr, 500 MG PO BID Prescribed by: RENE WESTFALL on 07/04/211934 Ondansetron (Ondansetron Odt) 4 Mg Tab.rapdis, 4 MG PO Q6H PRN for NAUSEA/VOMITING Prescribed by: BRITNEY CAMPBELL on 02/26/21150 Ondansetron (Ondansetron Odt) 4 Mg Tab.rapdis, 4 MG SL Q4H PRN for NAUSEA/VOMITING Prescribed by: EDGAR GALVAN on 07/04/22351 Oxycodone HCl/Acetaminophen (Percocet 10-325 mg Tablet) 1 Each Tablet, 1 EACH PO Q4H PRN for PAIN Prescribed by: JESUS KNUTSON on 07/26/16 1054 Discontinued Medications Naproxen (Naproxen) 500 Mg Tablet, 500 MG PO Q12H Prescribed by: RENE WESTFALL on 01/08/23 1222 Review of Systems Review of Systems Constitutional: No chills, No diaphoresis EENTM: No Double Vision, No Eye Pain Respiratory: Denies Cough, Denies Orthopnea Cardiovascular: Denies Chest Pain Gastrointestinal: Denies Abdominal Pain, Denies Diarrhea, Denies Nausea, Denies Poor Appetite, Denies Vomiting Genitourinary: Denies Burning, Denies Discharge, Denies Frequency, Denies Flank Pain Musculoskeletal: back pain; No joint pain Skin: No change in color All Other Systems Reviewed Negative Unless Noted: Yes Past Gmxjjrp-Qynbmn-Nglryf Hx Patient Social History Tobacco Use?: No Smoking Status: Former Smoker Use of E-Cig and/or Vaping dev: No Substance use?: No Alcohol Use?: No Pt feels they are or have been: No Immunizations Up To Date Tetanus Booster (TDap): Less than 5yrs Influenza Vaccine Up-to-Date: No; Not Current Seasonal Allergies Seasonal Allergies: No Past Medical History Surgery/Hospitalization HX: HTN HIGH CHOLESTEROL COPD Surgeries: Yes Abdominal Respiratory: Yes COPD Cardiac: Yes Hypertension Neurological: No Reproductive Disorders: No Genitourinary: No Gastrointestinal: Yes Diverticulosis Musculoskeletal: Yes Degenerate Disk Disease, Chronic Back Pain Endocrine: No HEENT: No Cancer: No Psychosocial: No Integumentary: No Family Medical History No Pertinent Family Hx, CAD Under 55 Years Old, Diabetes Physical Exam Vital Signs Vital Signs - First Documented 01/08/23 09:27 Temp 36.7 Pulse 106 Resp 20 Pulse Ox 94 O2 Delivery Room Air Capillary Refill : Less Than 3 Seconds Height/Weight/BMI Height: 6'0.00" Weight: 265lbs. 0.0oz. 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, no motor/sensory deficits, alert, normal mood/affect, oriented x 3 Skin: normal color, warm/dry Progress/Results/Core Measures Results/Orders Lab Results Laboratory Tests Test 01/08/23 11:26 01/08/23 11:37 Range/Units Urine Color YELLOW Urine Clarity CLEAR Urine pH 8.5 5-9 Urine Specific [place]inson 1.015 L 1.016-1.022 Urine Protein NEGATIVE NEGATIVE Urine Glucose (UA) NEGATIVE NEGATIVE Urine Ketones NEGATIVE NEGATIVE Urine Nitrite NEGATIVE NEGATIVE Urine Bilirubin NEGATIVE NEGATIVE Urine Urobilinogen 4 H < = 1.0 MG/DL Urine Leukocyte Esterase NEGATIVE NEGATIVE Urine RBC (Auto) NEGATIVE NEGATIVE Urine RBC NONE /HPF Urine WBC NONE /HPF Urine Crystals NONE /LPF Urine Bacteria NEGATIVE /HPF Urine Casts NONE /LPF Urine Mucus NEGATIVE /LPF Urine Culture Indicated NO White Blood Count 6.9 4.3-11.0 10^3/uL Red Blood Count 4.53 4.30-5.52 10^6/uL Hemoglobin 16.5 13.3-17.7 g/dL Hematocrit 48 40-54 % Mean Corpuscular Volume 106 H 80-99 fL Mean Corpuscular Hemoglobin 36 H 25-34 pg Mean Corpuscular Hemoglobin Concent 34 32-36 g/dL Red Cell Distribution Width 13.9 10.0-14.5 % Platelet Count 194 130-400 10^3/uL Mean Platelet Volume 10.9 9.0-12.2 fL Immature Granulocyte % (Auto) 0 % Neutrophils (%) (Auto) 71 42-75 % Lymphocytes (%) (Auto) 23 12-44 % Monocytes (%) (Auto) 6 0-12 % Eosinophils (%) (Auto) 0 0-10 % Basophils (%) (Auto) 0 0-10 % Neutrophils # (Auto) 4.9 1.8-7.8 10^3/uL Lymphocytes # (Auto) 1.6 1.0-4.0 10^3/uL Monocytes # (Auto) 0.4 0.0-1.0 10^3/uL Eosinophils # (Auto) 0.0 0.0-0.3 10^3/uL Basophils # (Auto) 0.0 0.0-0.1 10^3/uL Immature Granulocyte # (Auto) 0.0 0.0-0.1 10^3/uL Sodium Level 139 135-145 MMOL/L Potassium Level 3.9 3.6-5.0 MMOL/L Chloride Level 103 98-107 MMOL/L Carbon Dioxide Level 24 21-32 MMOL/L Anion Gap 12 5-14 MMOL/L Blood Urea Nitrogen 8 7-18 MG/DL Creatinine 0.95 0.60-1.30 MG/DL Estimat Glomerular Filtration Rate 104 BUN/Creatinine Ratio 8 Glucose Level 136 H 70-105 MG/DL Calcium Level 9.8 8.5-10.1 MG/DL Corrected Calcium 9.6 8.5-10.1 MG/DL Total Bilirubin 1.1 H 0.1-1.0 MG/DL Aspartate Amino Transf (AST/SGOT) 60 H 5-34 U/L Alanine Aminotransferase (ALT/SGPT) 81 H 0-55 U/L Alkaline Phosphatase 47 40-136 U/L Total Protein 7.5 6.4-8.2 GM/DL Albumin 4.3 3.2-4.5 GM/DL Lipase 85 H 8-78 U/L My Orders Orders - RICARDO VERMA Cbc With Automated Diff (01/08/23 10:49) Comprehensive Metabolic Panel (01/08/23 10:49) Lipase (01/08/23 10:49) Abdomen/Kub 1view (01/08/23 10:49) Ketorolac Injection (Ketorolac Injection (01/08/23 11:00) Orphenadrine Inj (Ed Only) (Norflex Inje (01/08/23 11:00) Ua Culture If Indicated (01/08/23 10:49) Medications Given in ED Current Medications Medications Dose Ordered Sig/Feliciano Route Start Time Stop Time Status Last Admin Dose Admin Ketorolac Tromethamine 30 mg ONCE ONCE IM 01/08/23 11:00 01/08/23 11:01 DC 01/08/23 11:06 30 MG Orphenadrine Citrate 60 mg ONCE ONCE IM 01/08/23 11:00 01/08/23 11:01 DC 01/08/23 11:06 60 MG Vital Signs/I&O 01/08/23 09:27 Temp 36.7 Pulse 106 Resp 20 B/P (MAP) Pulse Ox 94 O2 Delivery Room Air Departure Communication (PCP) Reviewed previous ER visits, H&P, lab testing. Differential diagnosis, nephrolithiasis, urolithiasis, musculoskeletal. Patient with left-sided th oracic mid back pain. Pain is below his left rib and into his left flank. No rating pain. No nausea, vomiting, diarrhea cough, chest pain or shortness of breath. No abdominal tenderness. No relief with anti-inflammatories at home. No lumbar, thoracic midline tenderness. No bowel or urine cons or saddle paresthesia. Due to location of pain UA, CBC, CMP, lipase KUB was ordered. Urinalysis was negative for infection or hematuria suggesting urolithiasis or nephrolithiasis. CBC, CMP grossly unremarkable. Did have a slight elevated AST 60, ALT 81, bilirubin 1.1 nonspecific likely secondary to cholesterol or triglycerides. He has no right upper quadrant tenderness. Afebrile. No drug use. Did receive Toradol and Norflex with some improvement. KUB was negative for urolithiasis, nephrolithiasis. KUB Punctate left-sided 2 mm calcification unchanged inorientation from the prior were shown to be of extra ureteral phleboliths, will discharge with ketorolac as he states this helped with pain and cyclobenzaprine. Discussed lidocaine patches. Heat. Stretching. Follow- up your PCP 2 to 3 days for reevaluation. If any worsening symptoms such as fever, chills, vomiting, chest pain, shortness of breath or cough to return back to ED. Patient was tachycardic but states this is chronic. If any worsening symptoms return back to ED. Impression Primary Impression: Back pain Disposition: HOME, SELF-CARE Condition: Stable Departure-Patient Inst. Decision time for Depature: 12:20 Referrals: [facility] (PCP/Family) Primary Care Physician Patient Instructions: Upper Back Pain ED Add. Discharge Instructions: Recommend lidocaine topical patches. Anti-inflammatories for pain. Muscle rela xer. Heat. Stretching. Follow-up your PCP in 2 to 3 days for reevaluation. All discharge instructions reviewed with patient and/or family. Voiced understanding. Scripts Ketorolac Tromethamine (Ketorolac Tromethamine) 10 Mg Tablet 10 MG PO TID, #15 TAB Prov: RICARDO VERMA 01/08/23 Cyclobenzaprine HCl (Cyclobenzaprine HCl) 10 Mg Tablet 10 MG PO TID, #16 TAB Prov: RICARDO VERMA 01/08/23 Work/School Note: Work Release Form Date Seen in the Emergency Department: Jan 08, 2023 Return to Work: Jan 10, 2023 RICARDO VERMA Jan 08, 2023 10:53
[2023-01-08] MEDS ORDERED: KETOROLAC INJ 30 MG/ML VIAL IM ONE (11:00)
[2023-01-08] MEDS ORDERED: ORPHENADRINE 60 MG/2 ML AMP (ED ONLY) IM ONE (11:00)
[2023-01-08 11:44] LABS: BACTERIA,URINE NEGATIVE /HPF; BILIRUBIN,URINE NEGATIVE (NEGATIVE); CLARITY,URINE CLEAR; COLOR,URINE YELLOW; GLUCOSE, URINE (UA) NEGATIVE (NEGATIVE); KETONES,URINE NEGATIVE (NEGATIVE); LEUKOCYTE ESTERASE ,URINE NEGATIVE (NEGATIVE); NITRITE,URINE NEGATIVE (NEGATIVE); PH,URINE 8.5 (5-9); PROTEIN,URINE NEGATIVE (NEGATIVE)
[2023-01-08 11:44] LABS: BASOPHILS % (AUTO) 0 % (0-10); EOSINOPHILS % (AUTO) 0 % (0-10); HEMATOCRIT 48 % (40-54); HEMOGLOBIN 16.5 g/dL (13.3-17.7); LYMPHOCYTES # (AUTO) 1.6 10^3/uL (1.0-4.0); LYMPHOCYTES % (AUTO) 23 % (12-44); MEAN CORPUSCULAR HEMOGLOBIN 36 pg (25-34); MEAN CORPUSCULAR HGB CONC 34 g/dL (32-36); MEAN CORPUSCULAR VOLUME 106 fL (80-99); MEAN PLATELET VOLUME 10.9 fL (9.0-12.2); MONOCYTES # (AUTO) 0.4 10^3/uL (0.0-1.0); MONOCYTES % (AUTO) 6 % (0-12); NEUTROPHILS # (AUTO) 4.9 10^3/uL (1.8-7.8); NEUTROPHILS % (AUTO) 71 % (42-75); PLATELET COUNT 194 10^3/uL (130-400); WHITE BLOOD COUNT 6.9 10^3/uL (4.3-11.0)
[2023-01-08 11:53] LABS: ALBUMIN 4.3 GM/DL (3.2-4.5); POTASSIUM 3.9 MMOL/L (3.6-5.0)
[2023-01-08 11:54] LABS: CALCIUM 9.8 MG/DL (8.5-10.1)
[2023-01-08 11:56] LABS: TOTAL PROTEIN 7.5 GM/DL (6.4-8.2)
[2023-01-08 11:57] LABS: BILIRUBIN,TOTAL 1.1 MG/DL (0.1-1.0)
[2023-01-08 11:59] LABS: CREATININE SERUM 0.95 MG/DL (0.60-1.30)
--- NOTE | 2023-01-08 12:13 | Diagnostic Imaging Report ---
INDICATION: Left flank pain. Supine KUB radiographs are performed. Correlated with abdominal pelvic CT 07/04/2021. FINDINGS: Punctate left-sided 2 mm calcification unchanged in orientation from the prior were shown to be of extra ureteral phleboliths. No appreciable radiodense urinary tract calculi. The bowel gas pattern nonobstructive. IMPRESSION: No acute appearing abnormality. Dictated by: Dictated on workstation # [id number]
[2023-01-08] MEDS ORDERED: KETO10TA PO (12:22)
[2023-01-08] MEDS ORDERED: NAPR-915 PO (12:22)
[2023-01-08] MEDS ORDERED: CYCL10TA25 PO (12:22)
== END 2023-01-08 12:32 | disposition home or self-care (01) ==
LOC: EDUNIT# 09:15 → ER 09:17
DX: M54.6 Pain in thoracic spine (principal); Z87.891 Personal history of nicotine dependence; Z90.49 Acquired absence of other specified parts of digestive tract; Z87.39 Personal history of other diseases of the musculoskeletal system and connective tissue; Z28.310 Unvaccinated for COVID-19
CPT/HCPCS: 36415; 74018; 80053; 81000; 83690; 85025